=== PATIENT | female | born 1970 | race Caucasian/White ===

== ENCOUNTER 2017-04-29 07:19 | Emergency (ER) | payer OTHER ==
[2017-04-29 07:32] VITALS: BP 145/90
[2017-04-29] MEDS ORDERED: Clindamycin CAP* 150 MG PO ONE (07:43)
--- NOTE | 2017-04-29 07:51 | UC ---
UC Dental HPI - HPI Summary HPI Summary: 46 YO FEMALE WITH DM PRESENTS WITH 1 DAY HX OF DENTAL PAIN AND JAW SWELLING NO F/C NO N/V HAS NO DENTIST - History of Current Complaint Chief Complaint: UCDentalProblem Stated Complaint: SWOLLEN JAW Time Seen by Provider: 04/29/17 07:37 Hx Obtained From: Patient Hx Last Menstrual Period: 03/20/17 Onset/Duration: Gradual Onset, Lasting Hours Severity: Severe Pain Intensity: 9 Pain Scale Used: 0-10 Numeric Aggravating: Heat, Cold, Chewing Alleviating: OTC Meds Related History: Previous Dental Care on Same Tooth, Swelling - Allergies/Home Medications Allergies/Adverse Reactions: Allergies Allergy/AdvReac Type Severity Reaction Status Date / Time Amoxicillin Allergy Severe Hives Verified 04/29/17 07:24 Levofloxacin [From Levaquin] Allergy Severe Rash Verified 04/29/17 07:24 Sulfa Drugs Allergy Severe Hives Verified 04/29/17 07:24 Doxycycline Allergy Hives Verified 04/29/17 07:24 PMH/Surg Hx/FS Hx/Imm Hx Endocrine History Of: Reports: Diabetes, Thyroid Disease Cardiovascular History Of: Reports: Hypertension Respiratory History Of: Reports: Asthma - Surgical History Surgical History: Yes Surgery Procedure, Year, and Place: Left wrist surgery,Right elbow surgery, 2 Thyroidectomies, B/L carpal tunnel surgery,L knee ligament repair 1988. - Family History Known Family History: Positive: Cardiac Disease, Hypertension, Diabetes - Social History Alcohol Use: Rare Alcohol Amount: 1 Substance Use Type: None Smoking Status (MU): Heavy Every Day Tobacco Smoker Type: Cigarettes Amount Used/How Often: 1 PPD Length of Time of Smoking/Using Tobacco: 17 YRS Have You Smoked in the Last Year: Yes Household Exposure Type: Cigarettes - Immunization History Most Recent Influenza Vaccination: infrequently gets flu shot Most Recent Tetanus Shot: unk Most Recent Pneumonia Vaccination: within last 10 years Hx Tetanus, Diphtheria Vaccination: Yes Vaccination Up to Date: Yes Review of Systems Constitutional: Negative Skin: Negative Eyes: Negative ENT: Dental Pain Respiratory: Negative Cardiovascular: Negative Gastrointestinal: Negative Genitourinary: Negative Motor: Negative Neurovascular: Negative Musculoskeletal: Negative Neurological: Negative Psychological: Negative All Other Systems Reviewed And Are Negative: Yes Physical Exam Triage Information Reviewed: Yes Appearance: Well-Appearing, No Pain Distress, Well-Nourished Vital Signs: Initial Vital Signs Temp 97.9 F 04/29/17 07:28 Pulse 67 04/29/17 07:28 Resp 14 04/29/17 07:28 BP 145/90 04/29/17 07:28 Pulse Ox 99 04/29/17 07:28 Eyes: Positive: Conjunctiva Clear ENT: Positive: Hearing grossly normal. Negative: Nasal congestion, Nasal drainage, Tonsillar exudate, Trismus, Muffled/hoarse voice Dental: Positive: Gross Decay/Caries @, Abscess @, Other: - SEE IMAGE Neck: Positive: Supple, Nontender Respiratory: Positive: Lungs clear, Normal breath sounds, No respiratory distress, No accessory muscle use Cardiovascular: Positive: RRR, No Murmur Musculoskeletal: Positive: Strength Intact, ROM Intact, No Edema Neurological: Positive: Alert, Muscle Tone Normal Psychological Exam: Normal Skin Exam: Normal Dental Complaint Course/Dx - Differential Dx/Diagnosis Provider Diagnoses: DENTAL ABSCESS Discharge - Discharge Plan Condition: Stable Disposition: HOME Prescriptions: Clindamycin Cap(NF) [Cleocin 300 mg Cap(NF)] 300 mg PO QID #28 cap Patient Education Materials: Dental Abscess (ED) Referrals: Mino Lyon MD [Primary Care Provider] - Additional Instructions: TO ER FOR NEW OR WORSENING SYMPTOMS OR IF NOT NOTING ANY IMPROVEMENT IN 24 HOURS YOU NEED TO FIND A DENTIST ADDIS Images Head: 1 - SWOLLEN/TENDER Dental: 1 - ABSCESS/ABYSMAL DENTITION WITH MANY CARIOUS TEETH ROTTED TO GUM LINE
== END 2017-04-29 07:59 | disposition home or self-care (01) ==
LOC: UCCORT 07:19
DX: K04.7 Periapical abscess without sinus (principal); K02.9 Dental caries, unspecified; E11.9 Type 2 diabetes mellitus without complications; Z72.0 Tobacco use
CPT/HCPCS: 99212; A9270-GY; G0463

== ENCOUNTER 2017-06-20 10:13 | Emergency (ER) | payer OTHER ==
[2017-06-20 10:32] VITALS: BP 124/71
--- NOTE | 2017-06-20 11:09 | RAD ---
INDICATION: Atraumatic left thumb pain COMPARISON: None TECHNIQUE: AP, lateral, and oblique views were obtained. FINDINGS: There are no acute bony findings. There is minor osteoarthritic changes.. IMPRESSION: MINOR ARTHRITIC CHANGES.
--- NOTE | 2017-06-20 11:25 | UC ---
Hand/Wrist HPI - HPI Summary HPI Summary: LEFT THUMB INJURY DOG RAN INTO LEFT THUMB SEVERAL DAYS AGO, SINCE THAT TIME HAS HAD PAIN WITH MOVEMENT OF LEFT THUMB. NO HX OF GOUT. NO WARMTH. NO BRUISING OR REDNESS. - History Of Current Complaint Chief Complaint: UCUpperExtremity Stated Complaint: LEFT THUMB COMPLAINT Time Seen by Provider: 06/20/17 10:17 Hx Obtained From: Patient Hx Last Menstrual Period: 05/20/17 Onset/Duration: Sudden Onset, Lasting Days, Still Present Severity Initially: Moderate Severity Currently: Moderate Character Of Pain: Dull, Aching, Throbbing Aggravating Factor(s): Movement, Flexion, Extension Associated Signs And Symptoms: Negative: Swelling, Redness, Bruising, Fever, Weakness, Numbness/Tingling - Allergies/Home Medications Allergies/Adverse Reactions: Allergies Allergy/AdvReac Type Severity Reaction Status Date / Time Amoxicillin Allergy Severe Hives Verified 06/20/17 10:20 Levofloxacin [From Levaquin] Allergy Severe Rash Verified 06/20/17 10:20 Sulfa Drugs Allergy Severe Hives Verified 06/20/17 10:20 Doxycycline Allergy Hives Verified 06/20/17 10:20 Home Medications: Home Medications Levothyroxine TAB* [Synthroid TAB*] 125 mcg PO DAILY 06/20/17 [History Confirmed 06/20/17] Naproxen Sodium [Naproxen Sodium 220 mg cap] 220 mg PO Q8H PRN 06/20/17 [ History Confirmed 06/20/17] PMH/Surg Hx/FS Hx/Imm Hx Previously Healthy: Yes - Surgical History Surgical History: Yes Surgery Procedure, Year, and Place: Left wrist surgery,Right elbow surgery, 2 Thyroidectomies, B/L carpal tunnel surgery,L knee ligament repair 1988. - Family History Known Family History: Positive: Cardiac Disease, Hypertension, Diabetes - Social History Occupation: Employed Full-time Lives: With Family Alcohol Use: Rare Alcohol Amount: 1 Substance Use Type: None Smoking Status (MU): Heavy Every Day Tobacco Smoker Type: Cigarettes Amount Used/How Often: 1 PPD Length of Time of Smoking/Using Tobacco: 17 YRS Have You Smoked in the Last Year: Yes Household Exposure Type: Cigarettes - Immunization History Most Recent Influenza Vaccination: infrequently gets flu shot Most Recent Tetanus Shot: unk Most Recent Pneumonia Vaccination: within last 10 years Hx Tetanus, Diphtheria Vaccination: Yes Vaccination Up to Date: Yes Review of Systems Constitutional: Negative Skin: Negative Eyes: Negative ENT: Negative Respiratory: Negative Cardiovascular: Negative Gastrointestinal: Negative Genitourinary: Negative Motor: Negative Neurovascular: Negative Musculoskeletal: Arthralgia, Myalgia Neurological: Negative Psychological: Negative All Other Systems Reviewed And Are Negative: Yes Physical Exam Triage Information Reviewed: Yes Appearance: Well-Appearing, No Pain Distress, Well-Nourished Vital Signs: Initial Vital Signs Temp 98.7 F 06/20/17 10:25 Pulse 79 06/20/17 10:25 Resp 18 06/20/17 10:25 BP 124/71 06/20/17 10:25 Pulse Ox 97 06/20/17 10:25 Vital Signs Reviewed: Yes Eye Exam: Normal ENT Exam: Normal Dental Exam: Normal Neck exam: Normal Respiratory Exam: Normal Respiratory: Positive: Chest non-tender, Lungs clear Cardiovascular Exam: Normal Cardiovascular: Positive: RRR, No Murmur Abdominal Exam: Normal Musculoskeletal: Positive: No Edema, Strength Limited @ - LEFT THUMB, ROM Limited @ - LEFT THUMB Neurological Exam: Normal Psychological Exam: Normal Skin Exam: Normal Hand/Wrist Course/Dx - Differential Dx/Diagnosis Differential Diagnosis/HQI/PQRI: Cellulitis, Fracture, Gout, Sprain, Strain Provider Diagnoses: LEFT THUMB SPRAIN, OSTEOARTHRITIS Discharge - Discharge Plan Condition: Stable Disposition: HOME Patient Education Materials: Osteoarthritis (ED), Finger Sprain (ED) Referrals: Danish Cantu MD [Medical Doctor] - Mino Lyon MD [Primary Care Provider] - Additional Instructions: PHYSICAL THERAPY REFERRAL: You have been prescribed physical therapy. Treatments may include stretching, exercise, application of heat or cold, and other modalities. After an injury, PT can reduce swelling and pain. In recovery, PT is used to restore mobility and strength. Your specific treatment goals are: ____x_ Reduction of Swelling (EGS, US, ice as needed) ____x_ Pain Reduction (EGS, US, ice as needed) TENS Pack Fitting and Instruction Wound Hydrotherapy __x___ Preservation of Mobility ___x__ Tenriism of Mobility ___x__ Strength Tenriism ___x__ Work or Sports Hardening This instruction sheet also serves as your PHYSICAL THERAPY REFERRAL! Please take it with you to the therapist, so he/she will be aware of your diagnosis and treatment plan. You may see the physical therapist of your choice for these treatments, but may wish to check with your insurance to be sure the provider you select is covered. It's important to see the doctor to whom you have been referred for follow up.
== END 2017-06-20 11:40 | disposition home or self-care (01) ==
LOC: UCCORT 10:13
DX: S63.602A Unspecified sprain of left thumb, initial encounter (principal); W54.1XXA Struck by dog, initial encounter; Y93.9 Activity, unspecified; Y92.9 Unspecified place or not applicable; M19.042 Primary osteoarthritis, left hand; Z32.02 Encounter for pregnancy test, result negative; Z88.1 Allergy status to other antibiotic agents; Z88.2 Allergy status to sulfonamides; F17.210 Nicotine dependence, cigarettes, uncomplicated
CPT/HCPCS: 84702; 99212; G0463

== ENCOUNTER 2017-08-28 17:06 | Emergency (ER) | payer OTHER ==
[2017-08-28 17:22] VITALS: BP 153/83
--- NOTE | 2017-08-28 18:13 | UC ---
Epistaxis Nasal HPI - HPI Summary HPI Summary: Patient presents with sinus pressure, sinus discomfort and right sided maxillary pain worse on palpation with swelling. Denies fevers, sweats or chills. Patient is a diabetic and a smoker. She states she gets multiple sinus and bronchitis infections yearly and is allergic to several abx. She denies N/V/C/D. Denies back pain. Endorses sinus MAGALLANES. - History of Current Complaint Hx Obtained From: Patient Hx Last Menstrual Period: 07/27/17 ?: No Onset/Duration: Sudden Onset Timing: Constant Severity Initially: Moderate Severity Currently: Moderate Pain Intensity: 5 Pain Scale Used: 0-10 Numeric Aggravating Factor(s): URI Alleviating Factor(s): Pressure Associated Signs And Symptoms: Positive: Nasal Discharge <Francia Bunn - Last Filed: 08/28/17 18:08> <Vanita Garg - Last Filed: 08/29/17 20:14> - History of Current Complaint Chief Complaint: UCRespiratory Stated Complaint: SINUS PRESSURE Time Seen by Provider: 08/28/17 17:57 - Allergies/Home Medications Allergies/Adverse Reactions: Allergies Allergy/AdvReac Type Severity Reaction Status Date / Time Amoxicillin Allergy Severe Hives Verified 08/28/17 17:22 Levofloxacin [From Levaquin] Allergy Severe Rash Verified 08/28/17 17:22 Sulfa Drugs Allergy Severe Hives Verified 08/28/17 17:22 Doxycycline Allergy Hives Verified 08/28/17 17:22 PMH/Surg Hx/FS Hx/Imm Hx Previously Healthy: Yes - Surgical History Surgical History: Yes Surgery Procedure, Year, and Place: Left wrist surgery,Right elbow surgery, 2 Thyroidectomies, B/L carpal tunnel surgery,L knee ligament repair 1988. - Family History Known Family History: Positive: Cardiac Disease, Hypertension, Diabetes - Social History Occupation: Employed Full-time Lives: With Family Alcohol Use: Rare Alcohol Amount: 1 Substance Use Type: None Smoking Status (MU): Heavy Every Day Tobacco Smoker Type: Cigarettes Amount Used/How Often: 1 PPD Length of Time of Smoking/Using Tobacco: 17 YRS Have You Smoked in the Last Year: Yes Household Exposure Type: Cigarettes - Immunization History Most Recent Influenza Vaccination: no Most Recent Tetanus Shot: unk Most Recent Pneumonia Vaccination: within last 10 years Hx Tetanus, Diphtheria Vaccination: Yes Vaccination Up to Date: Yes <Francia Bunn - Last Filed: 08/28/17 18:08> Review of Systems Constitutional: Negative Skin: Negative ENT: Nasal Discharge, Sinus Congestion, Sinus Pain/Tenderness Respiratory: Cough, Other Motor: Negative Neurovascular: Negative Musculoskeletal: Negative Neurological: Negative Is Patient Immunocompromised?: No All Other Systems Reviewed And Are Negative: Yes <Francia Bunn - Last Filed: 08/28/17 18:08> Physical Exam Triage Information Reviewed: Yes Appearance: Well-Appearing, Well-Nourished Vital Signs: Initial Vital Signs Temp 98.4 F 08/28/17 17:17 Pulse 70 08/28/17 17:17 Resp 15 08/28/17 17:17 BP 153/83 08/28/17 17:17 Pulse Ox 99 08/28/17 17:17 Vital Signs Reviewed: Yes Eye Exam: Normal ENT: Positive: Nasal congestion, Nasal drainage Neck exam: Normal Neck: Positive: No Lymphadenopathy Respiratory Exam: Normal Respiratory: Positive: Chest non-tender, Lungs clear Cardiovascular Exam: Normal Cardiovascular: Positive: RRR Musculoskeletal Exam: Normal Musculoskeletal: Positive: Strength Intact Neurological Exam: Normal Neurological: Positive: Alert Psychological: Positive: Normal Response To Family Skin Exam: Normal <Francia Bunn - Last Filed: 08/28/17 18:08> Vital Signs: Initial Vital Signs Temp 98.4 F 08/28/17 17:17 Pulse 70 08/28/17 17:17 Resp 15 08/28/17 17:17 BP 153/83 08/28/17 17:17 Pulse Ox 99 08/28/17 17:17 <Vanita Garg - Last Filed: 08/29/17 20:14> Epistaxis Nasal Course/Dx - Course Course Of Treatment: Patient presents for evaluation of sinus pressure. She is allergic to multiple abx. She is given clindamycin for dental infection and sinusitis. Denies other symptoms. - Differential Dx/Diagnosis Differential Diagnosis/HQI/PQRI: Sinusitis Provider Diagnoses: Sinusitis/Dental Infection <Francia Bunn - Last Filed: 08/28/17 18:08> Discharge <Francia Bunn - Last Filed: 08/28/17 18:08> <Vanita Garg - Last Filed: 08/29/17 20:14> - Discharge Plan Condition: Stable Disposition: HOME Prescriptions: Clindamycin Cap(NF) [Clindamycin Cap 300 mg Cap(NF)] 300 mg PO Q6H #28 cap Patient Education Materials: Dental Abscess (ED), Sinusitis (ED) Referrals: Mino Lyon MD [Primary Care Provider] - Additional Instructions: Warm compresses to the area will help Clindamycin 300mg four times daily Ibuprofen 600mg three times daily If any symptoms become worse, return to the UC immediately Attestation Statement User Type: Provider - I was available for consult. This patient was seen by the [facility]. The patient was not presented to, seen by, or examined by me. -Hammad <Vanita Garg - Last Filed: 08/29/17 20:14>
== END 2017-08-28 18:12 | disposition home or self-care (01) ==
LOC: UCCORT 17:06
DX: J32.9 Chronic sinusitis, unspecified (principal); F17.210 Nicotine dependence, cigarettes, uncomplicated; Z88.1 Allergy status to other antibiotic agents
CPT/HCPCS: 99212; G0463

== ENCOUNTER 2017-08-30 04:28 | Emergency (ER) | payer OTHER ==
[2017-08-30] MEDS ORDERED: NS 0.9% 1000 ML* 1,000 ML IV ONE (05:06)
[2017-08-30] MEDS ORDERED: Clindamycin 600 MG IVPREMIX(* 600 MG in PREMIX* 0 ML IV ONE (05:06)
[2017-08-30] MEDS ORDERED: Ondansetron INJ* 2 MG/ML VIAL IV ONE (05:07)
[2017-08-30] MEDS ORDERED: HYDROmorphone INJ* 1 MG/ML CARPUJECT SYRINGE IV ONE (05:07)
[2017-08-30] MEDS ORDERED: Clindamycin 600 MG IVPREMIX(* 600 MG/50 ML SDV ONE (06:09)
[2017-08-30 06:31] LABS: Hematocrit 37 % (35-47); Hemoglobin 11.9 g/dl (12.0-16.0); Mean Corpuscular HGB Conc 32 g/dl (31-36); Mean Corpuscular Hemoglobin 25 pg (27-31); Mean Corpuscular Volume 77 fL (80-97); Mean Platelet Volume 9 um3 (7.4-10.4); Red Blood Count 4.73 10^6/ul (4.0-5.4); Red Cell Distribution Width 16 % (10.5-15); White Blood Count 13.7 10^3/ul (3.5-10.8)
[2017-08-30 06:42] LABS: Albumin 3.6 g/dL (3.2-5.2); BUN/Creatinine Ratio 14.3 (8-20); C Reactive Protein 40.35 mg/L (< 5.00); Calcium 8.5 mg/dL (8.6-10.3); EGFR African American 129.7 (>60); EGFR Non-African American 100.9 (>60); Globulin 2.7 g/dL (2-4); Potassium 3.9 mmol/L (3.5-5.0); Total Bilirubin 0.4 mg/dL (0.2-1.0); Total Protein 6.3 g/dL (6.4-8.9)
--- NOTE | 2017-08-30 07:01 | ED ---
Linda Andrews Rebecca, scribed for Janett Wesley MD on 08/30/17 at 0459 . Complex/Multi-Sys Presentation - HPI Summary HPI Summary: Pt is a 46 y/o F who presents to ED c/o worsening facial swelling. Pt reports that approximately 3 days ago she began experiencing R-sided facial swelling on the cheek and above the lip. Starting this morning, it spread to the L cheek and above the lip. She additionally c/o nasal congestion for about 1 week. Denies fever. She was evaluated by [facility] 2 days ago and was D/C to home with Dx of sinusitis and facial abscess with Rx for Clindamycin. - History Of Current Complaint Chief Complaint: EDGeneral Time Seen by Provider: 08/30/17 04:34 Hx Obtained From: Patient Onset/Duration: Lasting Days - 3 days, Still Present, Worse Since - This morning Severity Currently: Severe - 09/10 Location: Pain At: - Facial Aggravating Factor(s): Nothing Alleviating Factor(s): Nothing Associated Signs And Symptoms: Positive: Other - Nasal congestion. Negative: Fever - Allergies/Home Medications Allergies/Adverse Reactions: Allergies Allergy/AdvReac Type Severity Reaction Status Date / Time Amoxicillin Allergy Severe Hives Verified 08/30/17 04:47 Levofloxacin [From Levaquin] Allergy Severe Rash Verified 08/30/17 04:47 Sulfa Drugs Allergy Severe Hives Verified 08/30/17 04:47 Doxycycline Allergy Hives Verified 08/30/17 04:47 PMH/Surg Hx/FS Hx/Imm Hx Endocrine/Hematology History: Reports: Hx Diabetes, Hx Thyroid Disease Cardiovascular History: Reports: Hx Hypertension, Other Cardiovascular Problems/ Disorders - IDDM/ DKA Respiratory History: Reports: Hx Asthma - Surgical History Surgery Procedure, Year, and Place: Left wrist surgery,Right elbow surgery, 2 Thyroidectomies, B/L carpal tunnel surgery,L knee ligament repair 1988. Infectious Disease History: No Infectious Disease History: Denies: Traveled Outside the [place] in Last 30 Days - Family History Known Family History: Positive: Cardiac Disease, Hypertension, Diabetes - Social History Alcohol Use: Rare Alcohol Amount: 1 Substance Use Type: Reports: None Hx Tobacco Use: Yes Smoking Status (MU): Heavy Every Day Tobacco Smoker Type: Cigarettes Amount Used/How Often: 1 PPD Length of Time of Smoking/Using Tobacco: 17 YRS Have You Smoked in the Last Year: Yes Review of Systems Negative: Fever Positive: Other - Nasal congestion Positive: Other - Facial swelling of the cheeks and above the upper lip with associated pain All Other Systems Reviewed And Are Negative: Yes Physical Exam - Summary Physical Exam Summary: General: Well appearing, in moderate distress Skin: Warm, Skin Color Reflects Adequate Perfusion, Dry, Increase in facial swelling with fluctuance over the cheek bone n the right-hand side Eyes: EOMI, SHAYLA ENT: Pharynx normal, TMs normal, Tooth number 7 is decayed and painful Neck: Supple, nontender Respiratory: CTA, breath sounds present, no rhonchi, no wheezes, no rales Cardiovascular: RRR, no murmur, no rub, no gallop Abdomen: Soft, nontender, Non-distended, no guarding, no rebound Bowel: Present Musculoskeletal: CASEY, No edema Neuro: Sensory/motor intact, A&Ox3, CN intact 2-12 Psych: Affect/mood appropriate Triage Information Reviewed: Yes Vital Signs On Initial Exam: Initial Vitals Temp Pulse Resp BP Pulse Ox 99.5 F 78 16 172/90 96 08/30/17 04:42 08/30/17 04:42 08/30/17 04:42 08/30/17 04:42 08/30/17 04:42 Vital Signs Reviewed: Yes Diagnostics - Vital Signs Vital Signs Temp Pulse Resp BP Pulse Ox 08/30/17 04:42 99.5 F 78 16 172/90 96 - Laboratory Lab Results: Lab Results 08/30/17 08/30/17 08/30/17 Range/Units 06:00 06:00 06:00 WBC 13.7 H (3.5-10.8) 10^3/ul RBC 4.73 (4.0-5.4) 10^6/ul Hgb 11.9 L (12.0-16.0) g/dl Hct 37 (35-47) % MCV 77 L (80-97) fL MCH 25 L (27-31) pg MCHC 32 (31-36) g/dl RDW 16 H (10.5-15) % Plt Count 281 (150-450) 10^3/ul MPV 9 (7.4-10.4) um3 Neut % (Auto) 80.3 (38-83) % Lymph % (Auto) 10.9 L (25-47) % [place] % (Auto) 7.5 (1-9) % Eos % (Auto) 0.3 (0-6) % Baso % (Auto) 1.0 (0-2) % Absolute Neuts (auto) 11.0 H (1.5-7.7) 10^3/ul Absolute Lymphs (auto) 1.5 (1.0-4.8) 10^3/ul Absolute Monos (auto) 1.0 H (0-0.8) 10^3/ul Absolute Eos (auto) 0 (0-0.6) 10^3/ul Absolute Basos (auto) 0.1 (0-0.2) 10^3/ul Absolute Nucleated RBC 0 10^3/ul Nucleated RBC % 0 Sodium 136 (133-145) mmol/L Potassium 3.9 (3.5-5.0) mmol/L Chloride 103 (101-111) mmol/L Carbon Dioxide 27 (22-32) mmol/L Anion Gap 6 (2-11) mmol/L BUN 9 (6-24) mg/dL Creatinine 0.63 (0.51-0.95) mg/dL Est GFR ( Amer) 129.7 (>60) Est GFR (Non-Af Amer) 100.9 (>60) BUN/Creatinine Ratio 14.3 (8-20) Glucose 161 H (70-100) mg/dL Lactic Acid 1.1 (0.5-2.0) mmol/L Calcium 8.5 L (8.6-10.3) mg/dL Total Bilirubin 0.40 (0.2-1.0) mg/dL AST 9 L (13-39) U/L ALT 9 (7-52) U/L Alkaline Phosphatase 75 (34-104) U/L C-Reactive Protein 40.35 H (< 5.00) mg/L Total Protein 6.3 L (6.4-8.9) g/dL Albumin 3.6 (3.2-5.2) g/dL Globulin 2.7 (2-4) g/dL Albumin/Globulin Ratio 1.3 (1-3) Result Diagrams: 08/30/17 06:00 08/30/17 06:00 Lab Statement: Any lab studies that have been ordered have been reviewed, and results considered in the medical decision making process. - CT CT Maxillofacial CT Interpretation Completed By: Radiologist - Pending radiologist interpretation. See [employer] for results. Re-Evaluation - Re-Evaluation First Eval Re-Evaluation Time: 06:16 Comment: Receiving pain medication. Complex Multi-Symp Course/Dx Course Of Treatment: 46 yo female with facial swelling initially on right side of face likely secondary to tooth #6 now with increased facial swelling on the left. pt is awaiting ct of face but has already received iv clinda and will be signed out to am attending - Diagnoses Provider Diagnoses: Facial swelling Discharge - Discharge Plan Condition: Stable Disposition: OTHER Discharge Disposition Comment: Pt will be signed out, pending dispo, awaiting CT Maxillofacial. Referrals: Mino Lyon MD [Primary Care Provider] - The documentation as recorded by the Linda reynoso Rebecca accurately reflects the service I personally performed and the decisions made by me, Janett Wesley MD.
--- NOTE | 2017-08-30 09:41 | RAD ---
HISTORY: Right facial swelling, right tooth pain, fluctuance COMPARISONS: None TECHNIQUE: Multiple contiguous axial CT scans were obtained of the face without intravenous contrast, with coronal and sagittal multiplanar reformations. FINDINGS: The study is limited by the lack of intravenous contrast. This limits evaluation of the soft tissues. BONES: There is extensive carious disease, with periapical lucency along multiple teeth. There is cortical disruption along the anterior maxilla along the right second incisor. ORBITS: The globes are round. The optic nerves are symmetric. The extraocular musculature is normal. There is no post septal or intraconal inflammatory change. There is no retrobulbar hematoma. PARANASAL SINUSES: The paranasal sinuses are clear. BRAIN AND SOFT TISSUE: There is soft tissue swelling with findings suggestive of a loculated fluid collection along the right anterior maxilla measuring 1.4 x 1.8 x 1.7 cm in size. OTHER: None. IMPRESSION: EXTENSIVE CARIOUS DISEASE WITH MULTIPLE PERIAPICAL ABSCESSES. THERE IS CORTICAL DISRUPTION ALONG THE RIGHT SECOND INCISOR OF THE MAXILLA WITH ASSOCIATED LOCULATED FLUID COLLECTION SUGGESTIVE OF AN ABSCESS OF THE PREMAXILLARY SOFT TISSUE MEASURING UP TO 1.8 CM IN SIZE.
[2017-08-30 09:49] VITALS: BP 138/87
[2017-08-30] MEDS ORDERED: metroNIDAZOLE TAB* 250 MG PO ONE (10:10)
--- NOTE | 2017-08-30 18:26 | ED ---
Khai Andrews Angela, scribed for Jaret Chaney MD on 08/30/17 at 0715 . Progress - Progress Note Progress Note: Pt is a 46 y/o female who presents to the ED c/o worsening facial swelling x3 days. 3 days ago swelling began on the right side of her face and this morning it has spread to her left cheek. Pt states she does not have a dentist. This pt was signed out from Dr. Wesley, pending disposition, awaiting maxillofacial CT. Pt will be discharged to home in stable condition with a diagnoses of extensive carious disease and dental abscesses. - Results/Orders Results/Orders: Maxillofacial CT IMPRESSION: EXTENSIVE CARIOUS DISEASE WITH MULTIPLE PERIAPICAL ABSCESSES. THERE IS CORTICAL DISRUPTION ALONG THE RIGHT SECOND INCISOR OF THE MAXILLA WITH ASSOCIATED LOCULATED FLUID COLLECTION SUGGESTIVE OF AN ABSCESS OF THE PREMAXILLARY SOFT TISSUE MEASURING UP TO 1.8 CM IN SIZE. ED physician has reviewed this radiology report and agrees. Re-Evaluation - Re-Evaluation First Eval Re-Evaluation Time: 07:55 Comment: On examination, there is diffuse dental decay with multiple missing teeth. There is swelling of the left side of the face and slightly on the right side. Course/Dx - Course Course Of Treatment: Pt is a 46 y/o female who presents to the ED c/o worsening facial swelling x3 days. 3 days ago swelling began on the right side of her face and this morning it has spread to her left cheek. Pt states she does not have a dentist. This pt was signed out from Dr. Wesley, pending disposition, awaiting maxillofacial CT. CT reveals extensive carious disease with multiple periarpical abscesses. There is cortical disruption along the right second incisor of the maxilla with associated loculated fluid collection suggestive of an abscess of the premaxillary soft tisssue measuring up to 1.8 cm in size. I discussed the case with Dr. Thomas who recommends I discharge the pt home with prescriptions for clindamycin and flagyl. Dr. Thomas will follow up with the pt on Saturday in his office. I discussed the plan with the pt and she understands and agrees. Before discharge, pt does not have trismus, swelling of face or tongue, and the airway is intact. Pt is hemodynamically stable, alert and oriented x3. - Diagnoses Provider Diagnoses: Extensive carious disease, Dental abscesses - Provider Notifications Discussed Care Of Patient With: Favian Thomas Time Discussed With Above Provider: 10:05 Instructed by Provider To: Other - I discussed the case with Dr. Thomas, who recommends Clindamycin and Flagyl. He also recommends the pt to call his office and follow up with him. The documentation as recorded by the Khai reynoso Angela accurately reflects the service I personally performed and the decisions made by me, Jaret Chaney MD.
== END 2017-08-30 10:27 ==
LOC: ED 04:28
DX: K02.9 Dental caries, unspecified (principal); K04.7 Periapical abscess without sinus; R09.81 Nasal congestion; R22.0 Localized swelling, mass and lump, head
CPT/HCPCS: 36415; 70486; 80053; 83605; 85025; 86140; 87040; 99283; A9270-GY; J1170; J2405

== ENCOUNTER 2017-10-21 16:40 | Emergency (ER) | payer OTHER ==
--- NOTE | 2017-10-21 16:45 | UC ---
Throat Pain/Nasal Richy HPI - HPI Summary HPI Summary: 46 year old female presents with complains of left sided sinus infection and severe swelling. - History of Current Complaint Stated Complaint: CHEST RICHY,SINUSES,FACE Time Seen by Provider: 10/21/17 16:44 Hx Last Menstrual Period: 07/27/17 Onset/Duration: Sudden Onset Severity: Moderate - Allergies/Home Medications Allergies/Adverse Reactions: Allergies Allergy/AdvReac Type Severity Reaction Status Date / Time Amoxicillin Allergy Severe Hives Verified 10/21/17 17:39 Levofloxacin [From Levaquin] Allergy Severe Rash Verified 10/21/17 17:39 Sulfa Drugs Allergy Severe Hives Verified 10/21/17 17:39 Doxycycline Allergy Hives Verified 10/21/17 17:39 Home Medications: Home Medications Levothyroxine TAB* [Synthroid TAB*] 200 mcg PO DAILY 10/21/17 [History Confirmed 10/21/17] PMH/Surg Hx/FS Hx/Imm Hx Previously Healthy: Yes - Surgical History Surgical History: Yes Surgery Procedure, Year, and Place: Left wrist surgery,Right elbow surgery, 2 Thyroidectomies, B/L carpal tunnel surgery,L knee ligament repair 1988. - Family History Known Family History: Positive: Cardiac Disease, Hypertension, Diabetes - Social History Alcohol Use: Rare Alcohol Amount: 1 Substance Use Type: None Smoking Status (MU): Heavy Every Day Tobacco Smoker Type: Cigarettes Amount Used/How Often: 1 PPD Length of Time of Smoking/Using Tobacco: 17 YRS Have You Smoked in the Last Year: Yes Household Exposure Type: Cigarettes - Immunization History Most Recent Influenza Vaccination: no Most Recent Tetanus Shot: unk Most Recent Pneumonia Vaccination: within last 10 years Hx Tetanus, Diphtheria Vaccination: Yes Vaccination Up to Date: Yes Review of Systems Constitutional: Negative Skin: Other - left sinus pressure/swelling Eyes: Negative ENT: Negative Respiratory: Negative Cardiovascular: Negative Gastrointestinal: Negative Genitourinary: Negative Motor: Negative Neurovascular: Negative Musculoskeletal: Negative Neurological: Negative Psychological: Negative All Other Systems Reviewed And Are Negative: Yes Physical Exam Triage Information Reviewed: Yes Vital Signs Reviewed: Yes Eye Exam: Normal ENT: Positive: Nasal congestion, Nasal drainage, Sinus tenderness Dental Exam: Normal Neck exam: Normal Neck: Positive: 1 Respiratory Exam: Normal Cardiovascular Exam: Normal Abdominal Exam: Normal Musculoskeletal Exam: Normal Neurological Exam: Normal Psychological Exam: Normal Skin Exam: Normal Throat Pain/Nasal Course/Dx - Differential Dx/Diagnosis Provider Diagnoses: sinus congestion. left facial cellulitis Discharge - Discharge Plan Condition: Stable Disposition: HOME Prescriptions: Clindamycin Cap(NF) [Clindamycin Cap 300 mg Cap(NF)] 300 mg PO TID #30 cap Metronidazole [Flagyl 500 MG TAB] 500 mg PO BID 20 Days #1 tab Patient Education Materials: Dental Abscess (ED), Sinusitis (ED) Referrals: Mino Lyon MD [Primary Care Provider] -
[2017-10-21 17:39] VITALS: BP 178/90
== END 2017-10-21 17:51 | disposition home or self-care (01) ==
LOC: UCCORT 16:40
DX: R09.81 Nasal congestion (principal); L03.211 Cellulitis of face; Z88.1 Allergy status to other antibiotic agents; Z88.2 Allergy status to sulfonamides; F17.210 Nicotine dependence, cigarettes, uncomplicated
CPT/HCPCS: 99212; G0463

== ENCOUNTER 2017-12-25 17:23 | Emergency (ER) | payer OTHER ==
[2017-12-25 18:38] VITALS: BP 154/88
--- NOTE | 2017-12-25 20:04 | UC ---
Respiratory Complaint HPI - HPI Summary HPI Summary: Pt presents with c/o cough, wheezing, chills and generalized malaise X 3 days. - History of Current Complaint Chief Complaint: UCGeneralIllness Stated Complaint: UPPER RESPIRATORY Time Seen by Provider: 12/25/17 19:55 Hx Obtained From: Patient Hx Last Menstrual Period: 12/11/17 ?: No Onset/Duration: Gradual Onset, Lasting Days, Still Present Timing: Constant Severity Initially: Mild Severity Currently: Mild Pain Intensity: 8 Character: Cough: Nonproductive Aggravating Factors: Deep Breaths, Recumbent Position Alleviating Factors: Nothing Associated Signs And Symptoms: Positive: Wheezing - Risk Factors Pulmonary Embolism Risk Factors: Smoking Cardiac Risk Factors: Smoking Tuberculosis Risk Factors: Diabetes - Allergies/Home Medications Allergies/Adverse Reactions: Allergies Allergy/AdvReac Type Severity Reaction Status Date / Time Amoxicillin Allergy Severe Hives Verified 12/25/17 18:27 Levofloxacin [From Levaquin] Allergy Severe Rash Verified 12/25/17 18:27 Sulfa Drugs Allergy Severe Hives Verified 12/25/17 18:27 Doxycycline Allergy Hives Verified 12/25/17 18:27 PMH/Surg Hx/FS Hx/Imm Hx Previously Healthy: No Endocrine History: Diabetes, Thyroid Disease - Surgical History Surgical History: Yes Surgery Procedure, Year, and Place: Left wrist surgery,Right elbow surgery, 2 Thyroidectomies, B/L carpal tunnel surgery,L knee ligament repair 1988. - Family History Known Family History: Positive: Cardiac Disease, Hypertension, Diabetes - Social History Occupation: Employed Full-time Lives: With Family Alcohol Use: Weekly Alcohol Amount: 1 Substance Use Type: None Smoking Status (MU): Heavy Every Day Tobacco Smoker Type: Cigarettes Amount Used/How Often: 1/2 PPD Length of Time of Smoking/Using Tobacco: 20 YRS Have You Smoked in the Last Year: Yes Household Exposure Type: Cigarettes - Immunization History Most Recent Influenza Vaccination: no Most Recent Tetanus Shot: unk Most Recent Pneumonia Vaccination: within last 10 years Hx Tetanus, Diphtheria Vaccination: Yes Vaccination Up to Date: Yes Review of Systems Constitutional: Chills, Fatigue Skin: Negative Eyes: Negative ENT: Negative Respiratory: Cough Cardiovascular: Negative Gastrointestinal: Negative Genitourinary: Negative Motor: Negative Neurovascular: Negative Musculoskeletal: Negative Neurological: Negative Psychological: Negative Is Patient Immunocompromised?: No All Other Systems Reviewed And Are Negative: Yes Physical Exam Triage Information Reviewed: Yes Appearance: Ill-Appearing Vital Signs: Initial Vital Signs Temp 97.3 F 12/25/17 18:32 Pulse 77 12/25/17 18:32 Resp 16 12/25/17 18:32 BP 154/88 12/25/17 18:32 Pulse Ox 97 12/25/17 18:32 Vital Signs Reviewed: Yes Eye Exam: Normal ENT Exam: Normal Dental Exam: Normal Neck exam: Normal Neck: Positive: Other: - surgical scar from thyroidectomy, well healed Respiratory Exam: Other Respiratory: Positive: Wheezing Cardiovascular Exam: Normal Musculoskeletal Exam: Normal Neurological Exam: Normal Psychological Exam: Normal Skin Exam: Normal UC Diagnostic Evaluation - Laboratory O2 Sat by Pulse Oximetry: 97 Respiratory Course/Dx - Differential Dx/Diagnosis Differential Diagnosis/HQI/PQRI: Bronchitis, Influenza Provider Diagnoses: Bronchitis Discharge - Discharge Plan Condition: Stable Disposition: HOME Prescriptions: Azithromycin TAB* [Zithromax TAB (Z-REBECCA) 250 mg #6 tabs] 2 tab PO .TODAY, THEN 1 DAILY #1 rebecca Benzonatate CAP* [Tessalon 100 MG CAP*] 100 mg PO Q8H PRN #30 cap PRN Reason: Cough predniSONE TAB* [Deltasone TAB*] 30 mg PO DAILY #9 tab Patient Education Materials: Acute Bronchitis (ED) Forms: *Work Release Referrals: Mino Lyon MD [Primary Care Provider] - If Needed
== END 2017-12-25 20:15 | disposition home or self-care (01) ==
LOC: UCCORT 17:23
DX: J40 Bronchitis, not specified as acute or chronic (principal); E11.9 Type 2 diabetes mellitus without complications; E07.9 Disorder of thyroid, unspecified; Z88.1 Allergy status to other antibiotic agents; Z88.2 Allergy status to sulfonamides; F17.210 Nicotine dependence, cigarettes, uncomplicated
CPT/HCPCS: 99212; G0463

== ENCOUNTER 2018-03-17 09:43 | Emergency (ER) | payer OTHER ==
[2018-03-17 10:22] VITALS: BP 190/93
[2018-03-17] MEDS ORDERED: Tetracaine 0.5% OPTH.SOL 4 ML* 1 DROP BTL ONE (10:24)
[2018-03-17] MEDS ORDERED: BSS OPTH.SOL* BTL ONE (10:24)
[2018-03-17] MEDS ORDERED: Fluorescein Sod TOPICAL 0.6* 0.6 MG TEST OPHTHALMIC ONE (10:24)
--- NOTE | 2018-03-17 11:03 | UC ---
Eye Complaint HPI - HPI Summary HPI Summary: Pt c/o right eye redness, feeling of FB, itchiness, and tenderness X 1 day. - History of Current Complaint Chief Complaint: UCEye Stated Complaint: EYE Time Seen by Provider: 03/17/18 10:41 Hx Obtained From: Patient Hx Last Menstrual Period: 02/12/18 ?: No Onset/Duration: Sudden Onset Timing: Constant Severity Initially: Mild Severity Currently: Mild Pain Intensity: 5 Location of Injury: Sclera Character: Foreign Body Sensation Aggravating Factor(s): Blinking Alleviating Factor(s): Nothing Associated Signs And Symptoms: Positive: Drainage (Clear) - Risk Factors Penetrating Injury Risk Factor: Negative Globe Rupture Risk Factors: Negative Acute Glaucoma Risk Factors: Negative Optic Artery Occlusion Risk Factors: Negative - Allergies/Home Medications Allergies/Adverse Reactions: Allergies Allergy/AdvReac Type Severity Reaction Status Date / Time amoxicillin Allergy Hives Verified 03/17/18 10:13 doxycycline Allergy Hives Verified 03/17/18 10:13 levofloxacin Allergy Rash Verified 03/17/18 10:13 Sulfa (Sulfonamide Allergy Hives Verified 03/17/18 10:13 Antibiotics) sulfamethoxazole Allergy Hives Verified 03/17/18 11:16 [From Bactrim] trimethoprim [From Bactrim] Allergy Hives Verified 03/17/18 11:16 PMH/Surg Hx/FS Hx/Imm Hx Previously Healthy: Yes Endocrine History: Diabetes Cardiovascular History: Cardiac Disease - Surgical History Surgical History: Yes Surgery Procedure, Year, and Place: Left wrist surgery,Right elbow surgery, 2 Thyroidectomies, B/L carpal tunnel surgery,L knee ligament repair 1988. - Family History Known Family History: Positive: Cardiac Disease, Hypertension, Diabetes - Social History Occupation: Employed Full-time Lives: With Family Alcohol Use: Weekly Alcohol Amount: 1 Substance Use Type: None Smoking Status (MU): Heavy Every Day Tobacco Smoker Type: Cigarettes Amount Used/How Often: 1/2 PPD Length of Time of Smoking/Using Tobacco: 20 YRS Have You Smoked in the Last Year: Yes Household Exposure Type: Cigarettes - Immunization History Most Recent Influenza Vaccination: no Most Recent Tetanus Shot: unk Most Recent Pneumonia Vaccination: within last 10 years Hx Tetanus, Diphtheria Vaccination: Yes Vaccination Up to Date: Yes Review of Systems Constitutional: Negative Skin: Negative Eyes: Drainage, Eye Redness ENT: Negative Respiratory: Negative Cardiovascular: Negative Gastrointestinal: Negative Genitourinary: Negative Motor: Negative Neurovascular: Negative Musculoskeletal: Negative Neurological: Negative Psychological: Negative Is Patient Immunocompromised?: No All Other Systems Reviewed And Are Negative: Yes Physical Exam Triage Information Reviewed: Yes Appearance: Well-Appearing Vital Signs: Initial Vital Signs Temp 97.5 F 03/17/18 10:17 Pulse 81 03/17/18 10:17 Resp 18 03/17/18 10:17 BP 190/93 03/17/18 10:17 Pulse Ox 97 03/17/18 10:17 Vital Signs Reviewed: Yes Eyes: Positive: Conjunctiva Inflamed, Discharge - clear, Other: - flurocein uptake at right corner of sclera. Eye Complaint Course/Dx - Course Course Of Treatment: I discussed with the pt the need to f/u with her eye care porvider as soon as possible. Pt verbalized understanding and agreed to plan of care. - Differential Dx/Diagnosis Differential Diagnosis/HQI/PQRI: Conjunctivitis, Corneal Abrasion, Foreign Body Provider Diagnoses: possible corneal abrasion. possible FB right eye Discharge - Sign-Out/Discharge Documenting (check all that apply): Discharge - Discharge Plan Condition: Stable Disposition: HOME Patient Education Materials: Corneal Abrasion (ED) Referrals: Mino Lyon MD [Primary Care Provider] - If Needed Additional Instructions: Please follow up with your PCP or return to clinic as needed. Please follow up with your eye care provider as soon as possible. Please use over the counter eye lubricating drops as needed and as directed on the packaging. - Billing Disposition and Condition Condition: STABLE Disposition: HOME
== END 2018-03-17 11:20 | disposition home or self-care (01) ==
LOC: UCCORT 09:43
DX: H57.9 Unspecified disorder of eye and adnexa (principal); F17.210 Nicotine dependence, cigarettes, uncomplicated; Z88.3 Allergy status to other anti-infective agents; Z88.2 Allergy status to sulfonamides
CPT/HCPCS: 99212; A9270-GY; G0463

== ENCOUNTER 2018-05-01 18:10 | Emergency (ER) | payer OTHER ==
[2018-05-01 18:44] VITALS: BP 160/88
--- NOTE | 2018-05-01 18:50 | UC ---
Lower Extremity/Ankle HPI - HPI Summary HPI Summary: 47 y/o female presents to the urgent care c/o left foot pain s/p twisting her foot in her back yard about 2hrs ago today. Pt felt and heard a pop. Pain is 8/ 10 w/ walking, 5/10 w/ rest associated w/ mild swelling in the dorsal mid foot. Pt hasn't take anything to alleviate symptoms. Pt denies fever, numbness or tingling sensation over the toes or foot, calf pain, SOB, chest pain, abdominal pain, N/V/D. - History of Current Complaint Chief Complaint: UCLowerExtremity Stated Complaint: RT FOOT INJURY Time Seen by Provider: 05/01/18 18:49 Hx Obtained From: Patient Hx Last Menstrual Period: 04/17/18 ?: No - Pt declines pregnacy test Onset/Duration: Gradual Onset, Lasting Hours - 2hrs Severity Initially: Moderate Severity Currently: Moderate Pain Intensity: 5 - rest Pain Scale Used: 0-10 Numeric Aggravating Factor(s): Ambulation Alleviating Factor(s): Rest, Ice Able to Bear Weight: Yes - Risk Factors Gout Risk Factors: Negative DVT Risk Factors: Negative Septic Arthritis Risk Factor: Negative - Allergies/Home Medications Allergies/Adverse Reactions: Allergies Allergy/AdvReac Type Severity Reaction Status Date / Time amoxicillin Allergy Hives Verified 05/01/18 18:46 doxycycline Allergy Hives Verified 05/01/18 18:46 levofloxacin Allergy Rash Verified 05/01/18 18:46 Sulfa (Sulfonamide Allergy Hives Verified 05/01/18 18:46 Antibiotics) sulfamethoxazole Allergy Hives Verified 05/01/18 18:46 [From Bactrim] trimethoprim [From Bactrim] Allergy Hives Verified 05/01/18 18:46 Home Medications: Home Medications Insulin GLARGINE(*) [Lantus(*)] 20 units SUBCUT BEDTIME 05/01/18 [History Confirmed 05/01/18] PMH/Surg Hx/FS Hx/Imm Hx Previously Healthy: Yes Endocrine History: Diabetes, Hypothyroidism Other Endocrine History: Osteoarthritis Other GI/ History: Constipation - Surgical History Surgical History: Yes Surgery Procedure, Year, and Place: Left wrist surgery,Right elbow surgery, 2 Thyroidectomies, B/L carpal tunnel surgery,L knee ligament repair 1988. - Family History Known Family History: Positive: Cardiac Disease, Hypertension, Diabetes - Social History Occupation: Employed Full-time Lives: With Family Alcohol Use: Weekly Alcohol Amount: 1 Substance Use Type: None Smoking Status (MU): Heavy Every Day Tobacco Smoker Type: Cigarettes Amount Used/How Often: 1/2 PPD Length of Time of Smoking/Using Tobacco: 20 YRS Have You Smoked in the Last Year: Yes Household Exposure Type: Cigarettes - Immunization History Most Recent Influenza Vaccination: no Most Recent Tetanus Shot: unk Most Recent Pneumonia Vaccination: within last 10 years Hx Tetanus, Diphtheria Vaccination: Yes Vaccination Up to Date: Yes Review of Systems Constitutional: Negative Skin: Negative Eyes: Negative ENT: Negative Respiratory: Negative Cardiovascular: Negative Gastrointestinal: Negative Genitourinary: Negative Motor: Negative Neurovascular: Negative Musculoskeletal: Decreased ROM - RT foot, Other: - RT foot pain and swelling over the mid foot s/p twisting foot Neurological: Negative, Headache Is Patient Immunocompromised?: No All Other Systems Reviewed And Are Negative: Yes Physical Exam - Summary Physical Exam Summary: Vital Signs Reviewed: Yes General : well developed, well nourished female w/o any apparent distress Eyes: Positive: Conjunctiva Clear - PERRLA, EOMI ENT: Positive: Normal ENT inspection, Hearing grossly normal, Pharynx normal, TMs normal Neck: Positive: Supple, Nontender, No Lymphadenopathy Respiratory: Positive: Chest non-tender, Lungs clear, Normal breath sounds, No respiratory distress Cardiovascular: Positive: RRR, No Murmur, Pulses Normal Abdomen Description: Positive: Nontender, No Organomegaly, Soft. Negative: CVA Tenderness (R), CVA Tenderness (L) Bowel Sounds: Positive: Present Musculoskeletal: Positive: Strength Intact, ROM Intact, No Edema, RT Foot/Toes: Pt is able to bear weight but ambulate with mild limping and help of crutches. RT foot :No surface trauma, ecchymosis, erythema, lesions, ulcers or break in skin integrity. The R foot is without obvious asymmetry or deformity when compared to the L foot. No bony step-off, No tenderness to palpation over toes, point tenderness w/ mild swelling over the dorsal side of mid foot, no Point tenderness over sole, no tenderness of hindfoot, Decrease plantar/dorsiflexion , inversion/eversion due to pain. Distal motor and neurovascular status are intact. Neurological Exam: Normal Psychological Exam: Normal Skin Exam: Normal Triage Information Reviewed: Yes Vital Signs: Initial Vital Signs Temp 98 F 05/01/18 18:35 Pulse 82 05/01/18 18:35 Resp 18 05/01/18 18:35 BP 160/88 05/01/18 18:35 Pulse Ox 98 05/01/18 18:35 Lower Extremity Course/Dx - Course Course Of Treatment: 47 y/o female presents to the urgent care c/o left foot pain s/p twisting her foot in her back yard about 2hrs ago today. Pt felt and heard a pop. Pain is 8/10 w/ walking, 5/10 w/ rest associated w/ mild swelling in the dorsal mid foot. Pt hasn't take anything to alleviate symptoms. Pt denies fever, numbness or tingling sensation over the toes or foot, calf pain, SOB, chest pain, abdominal pain, N/V/D. Pt can't recalled if she has any injury in the past. Hx obtained.Pt w/ point tenderness w/ mild swelling over the dorsal side of mid foot on examination. RT foot X-ray ordered, Impression:There a small fragment at the dorsal aspect of the midfoot from a stable 2009 remote injury. No acute osseous injury noted and mild osteoarthritis as per radiologist. Pt's foot immobilized with quentin-bandage and given a Cam-Tyson to avoid flexion. Advised RICE, and contineu takign Celebrex Po she has at home for pain. Also advised to use her crutches to avoid weight bearing, If not improvement of symptoms to f/u with Orthopedic DR Cantu referral in 1 week for further evaluation and treatment. Pt's BP is elevated today advised to decrease salt in diet, monitor BP and f/u with PCP for further management. Pt understood and agreed with D/C instructions. Pt left the clinic ambulating w/ help of crutches. - Differential Dx/Diagnosis Differential Diagnosis/HQI/PQRI: Arthritis, Fracture (Closed), Gout, Sprain, Strain, Tendonitis Provider Diagnoses: 1- RT foot sprain. 2- Osteoarthritis. 3- Elevated BP w/o Hx of HTN Discharge - Sign-Out/Discharge Documenting (check all that apply): Discharge/Admit/Transfer - D/C home - Discharge Plan Condition: Stable Disposition: HOME Patient Education Materials: Foot Sprain (ED) Forms: *Work Release Referrals: Danish Cantu MD [Medical Doctor] - 1 Week Mino Lyon MD [Primary Care Provider] - 1 Week Additional Instructions: 1-Please continue taking Celebrex you have at home as directed to alleviate pain and swelling. 2-Please apply ice, keep your foot immobilized with the Quentin bandage and Cam tyson. Avoid strenuous exercise or standing for long periods of time. Use the crutches to avoid weight bearing until symptoms resolve 3- Please f/u with your PCP or Orthopedic DR Cantu in 7 days if not improvement of symptoms for further evaluation and treatment. 4-Your BP is elevated today. please decrease salt in your diet, monitor BP and if it continues to be elevated please f/u with your PCP for further management - Billing Disposition and Condition Condition: STABLE Disposition: HOME
[2018-05-01] MEDS ORDERED: Ibuprofen TAB* 400 MG PO ONE (19:01)
--- NOTE | 2018-05-01 19:36 | RAD ---
HISTORY: Right foot pain status post injury COMPARISONS: July 11, 2010 VIEWS: 3, Frontal, lateral, and oblique views of the right foot FINDINGS: BONE DENSITY: Normal. BONES: There is a small bone fragment along the dorsal aspect of the midfoot. This is stable from 2010 examination suggestive of remote avulsion injury. There is no acute displaced fracture. There are posterior calcaneal enthesophytes. JOINTS: There is mild osteoarthritis of the midfoot. ALIGNMENT: There is no dislocation. SOFT TISSUES: Unremarkable. OTHER FINDINGS: None. IMPRESSION: NO ACUTE OSSEOUS INJURY. IF SYMPTOMS PERSIST, RECOMMEND REPEAT IMAGING.
== END 2018-05-01 20:12 | disposition home or self-care (01) ==
LOC: UCCORT 18:10
DX: S93.601A Unspecified sprain of right foot, initial encounter (principal); X50.0XXA Overexertion from strenuous movement or load, initial encounter; Y93.9 Activity, unspecified; Y92.007 Garden or yard of unspecified non-institutional (private) residence as the place of occurrence of the external cause; M19.90 Unspecified osteoarthritis, unspecified site; R03.0 Elevated blood-pressure reading, without diagnosis of hypertension; Z88.0 Allergy status to penicillin; Z88.2 Allergy status to sulfonamides; Z88.8 Allergy status to other drugs, medicaments and biological substances; E11.9 Type 2 diabetes mellitus without complications; Z79.4 Long term (current) use of insulin; F17.210 Nicotine dependence, cigarettes, uncomplicated
CPT/HCPCS: 99213; A9270-GY; G0463

== ENCOUNTER 2018-08-21 18:26 | Emergency (ER) | payer OTHER ==
[2018-08-21 19:22] VITALS: BP 173/97
[2018-08-21] MEDS ORDERED: Benzonatate CAP* 100 MG PO ONE (20:40)
[2018-08-21] MEDS ORDERED: Azithromycin TAB* 250 MG PO ONE (20:40)
--- NOTE | 2018-08-21 20:49 | ED ---
Respiratory - HPI Summary HPI Summary: 47 year old female with history of COPD and type 2 DM presents with 5 day history of progressively worsening chest congestion, SOB, wheezing, and non- productive cough. Today developed sore throat and bilateral ear pain. Denies fever, chills, chest pain, abdominal pain, nausea, or vomiting. Has used her rescue inhaler 2-3 times in past 5 days. - History of Current Complaint Chief Complaint: UCGeneralIllness Stated Complaint: SORE EARS, THROAT, AND CHEST CONGESTION Time Seen by Provider: 08/21/18 20:31 Hx Obtained From: Patient Onset/Duration: Gradual Onset, Lasting Days Timing: Constant Initial Severity: Mild Current Severity: Moderate Pain Intensity: 7 Character: Wheezing, Cough (Nonproductive) Sputum Amount: None Aggravating Factor(s): URI Alleviating Factor(s): MDI (Frequency Of Use) - 2-3 times in 5 days Associated Signs and Symptoms: SOB, URI, Wheezing, Nasal Congestion, Dyspnea - Allergy/Home Medications Allergies/Adverse Reactions: Allergies Allergy/AdvReac Type Severity Reaction Status Date / Time amoxicillin Allergy Hives Verified 08/21/18 19:11 doxycycline Allergy Hives Verified 08/21/18 19:11 levofloxacin Allergy Rash Verified 08/21/18 19:11 Sulfa (Sulfonamide Allergy Hives Verified 08/21/18 19:11 Antibiotics) sulfamethoxazole Allergy Hives Verified 08/21/18 19:11 [From Bactrim] trimethoprim [From Bactrim] Allergy Hives Verified 08/21/18 19:11 PMH/Surg Hx/FS Hx/Imm Hx Endocrine/Hematology History: Reports: Hx Diabetes - type 2 with insulin tx, Hx Thyroid Disease Cardiovascular History: Reports: Hx Hypertension, Other Cardiovascular Problems/ Disorders - IDDM/ DKA Respiratory History: Reports: Hx Asthma - Surgical History Surgery Procedure, Year, and Place: Left wrist surgery,Right elbow surgery, 2 Thyroidectomies, B/L carpal tunnel surgery,L knee ligament repair 1988. Infectious Disease History: No Infectious Disease History: Denies: Traveled Outside the [place] in Last 30 Days - Family History Known Family History: Positive: Cardiac Disease, Hypertension, Diabetes - Social History Occupation: Employed Full-time Lives: With Family Alcohol Use: Weekly Alcohol Amount: 1 Substance Use Type: Reports: None Hx Tobacco Use: Yes Smoking Status (MU): Heavy Every Day Tobacco Smoker Type: Cigarettes Amount Used/How Often: 1 PPD Length of Time of Smoking/Using Tobacco: 25 YRS Have You Smoked in the Last Year: Yes Review of Systems Constitutional: Negative Eyes: Negative Positive: Sore Throat, Ear Ache Cardiovascular: Negative Positive: Shortness Of Breath, Cough, Other - wheezing Gastrointestinal: Negative Skin: Negative All Other Systems Reviewed And Are Negative: Yes Physical Exam Triage Information Reviewed: Yes Vital Signs On Initial Exam: Initial Vitals Temp Pulse Resp BP Pulse Ox 97.4 F 83 12 173/97 99 08/21/18 19:15 08/21/18 19:15 08/21/18 19:15 08/21/18 19:15 08/21/18 19:15 Vital Signs Reviewed: Yes Appearance: Positive: No Pain Distress, Ill-Appearing - chronically Skin: Positive: Warm, Skin Color Reflects Adequate Perfusion, Dry Eyes: Positive: Conjunctiva Clear. Negative: Discharge ENT: Positive: Hearing grossly normal, Pharyngeal erythema - mild with post- nasal drip, Nasal congestion, Nasal drainage, TMs normal, Uvula midline. Negative: Tonsillar swelling, Tonsillar exudate Neck: Positive: Supple, Nontender, No Lymphadenopathy Respiratory/Lung Sounds: Positive: Breath Sounds Present, Wheezes - Few scattered wheezes that cleared with cough, Other - Non-productive cough. Negative: Rales, Rhonchi Cardiovascular: Positive: RRR, S1, S2. Negative: Murmur Neurological: Positive: Alert, Oriented to Person Place, Time Diagnostics - Vital Signs Vital Signs Temp Pulse Resp BP Pulse Ox 08/21/18 19:15 97.4 F 83 12 173/97 99 - Laboratory Lab Statement: Any lab studies that have been ordered have been reviewed, and results considered in the medical decision making process. Disposition - Course Course Of Treatment: 47 year old female with history asthma presents with 5 day history of progressively worsening chest congestion, SOB, wheezing, and non- productive cough. Exam revealed scatttered wheezes that clear with cough. Heavy smoker. Will cover with Z-pack and provide Tessalon Perles for cough. She is to follow up with her PCP within 5 days for reevaluation. - Diagnoses Provider Diagnoses: Acute bronchitis with asthma Discharge - Sign-Out/Discharge Documenting (check all that apply): Patient Departure All imaging exams completed and their final reports reviewed: No Studies - Discharge Plan Condition: Stable Disposition: HOME Prescriptions: Azithromycin 250 mg PO DAILY #4 tablet Benzonatate CAP* [Tessalon 100 MG CAP*] 100 mg PO TID PRN #30 cap PRN Reason: Cough Patient Education Materials: Acute Bronchitis (ED) Referrals: Mino Lyon MD [Primary Care Provider] - 5 Days Additional Instructions: You have been prescribed an antibiotic called azithromycin for your infection. You were given the first dose in the clinic tonight. Starting tomorrow take 1 tablet daily for 4 days. May use Tessalon Perles 1 cap every 8 hours as needed for cough. Be sure to drink plenty of fluids. Take acetaminophen (Tylenol) as needed for any aches pains or fever. Continue to use your albuterol inhaler 2 puffs every 4-6 hours as needed for any shortness of breath or wheezing. I would recommend you consider stopping smoking as this can worsen your symptoms. Your blood pressure was elevated in the clinic tonight. I would recommend that you follow up with your primary care provider in 5 days to have this rechecked.. Seek immediate medical attention in the emergency room if you have a persistent fever greater than 100.5 F despite taking acetaminophen, have persistent wheezing despite using her albuterol inhaler, you have shortness of breath, chest pain, or any worsening of symptoms. - Billing Disposition and Condition Condition: STABLE Disposition: Home
== END 2018-08-21 20:53 | disposition home or self-care (01) ==
LOC: UCCORT 18:26
DX: J20.9 Acute bronchitis, unspecified (principal); J45.909 Unspecified asthma, uncomplicated; E11.9 Type 2 diabetes mellitus without complications; Z88.0 Allergy status to penicillin; Z88.1 Allergy status to other antibiotic agents; Z79.84 Long term (current) use of oral hypoglycemic drugs; I10 Essential (primary) hypertension; F17.210 Nicotine dependence, cigarettes, uncomplicated
CPT/HCPCS: 99212; A9270-GY; G0463

== ENCOUNTER 2019-08-31 10:57 | Emergency (ER) | payer OTHER ==
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
--- OUTSIDE RECORDS SUMMARY | 2019-08-31 11:04 | XMS REPORT | Continuity of Care Document ---
:1970 External Reference #:[id number] Author Name Skyler Martinez DO MPH Address [address] [place] [address] [address] [place] [address] Care Team Providers Name Role Phone Mino Lyon M.D. - Internal Care Team Information Rn Plastics Medicine Problems Active Problems Provider Date Type 2 diabetes mellitus Skyler Martinez DO MPH Onset: 04/28/2009 Social History Type Date Description Comments Sex Unknown Cigarette Use Current Cigarette Smoker 1/2 Pack Daily ETOH Use Rarely consumes alcohol Tobacco Use Start: Unknown Patient is a current smoker, smokes every day Smoking Status Reviewed: 07/20/19 Patient is a current smoker, smokes every [...] Available Vital Signs Date Vital Result Comment 07/20/2019 2:48pm BP Systolic 128 mmHg BP Diastolic 80 mmHg Heart Rate 84 /min Respiratory Rate 20 /min Height 65 inches 5'5" Weight 234.00 lb Pain Level 4 Pain at this time. Pain Level With Medicine 2 on average with meds Pain Level Without Medicine 8 without meds BMI (Body Mass Index) 38.9 kg/m2 06/23/2019 2:34pm BP Systolic 130 mmHg BP Diastolic 72 mmHg Heart Rate 78 /min Respiratory Rate 20 /min Height 65 inches 5'5" Weight 244.00 lb Pain Level 6 Pain at this time. Pain Level With Medicine 5 on average with meds Pain Level Without Medicine 9 without meds BMI (Body Mass Index) 40.6 kg/m2 Results Description No Information Available Procedures Date Code Description Status 07/20/2019 52086 Omt 1-2 Body Regions Completed 06/23/2019 17546 Omt 1-2 Body Regions Completed 05/25/2019 17654 Omt 1-2 Body Regions Completed 04/23/2019 49942 Omt 1-2 Body Regions Completed 03/26/2019 13857 Omt 1-2 Body Regions Completed 02/23/2019 93011 Omt 1-2 Body Regions Completed Medical Devices Description No Information Available Encounters Type Date Location Provider Dx Diagnosis Office Visit 07/20/2019 Main Office as Of Skyler Martinez DO, G89.21 Chronic pain due 3:15p 01/02/14 MPH to trauma M54.2 Cervicalgia M99.01 Segmental and somatic dysfunction of cervical region Z79.891 nursing home (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 analgesic Z79.891 nursing home (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 analgesic Office Visit 06/23/2019 3:00p Main Office as Skyler Martinez G89.21 Chronic pain due Of 01/02/14 DO, MPH to trauma M54.2 Cervicalgia M99.01 Segmental and somatic dysfunction of cervical region Z79.891 nursing home (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 analgesic 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 Office Visit 05/25/2019 2:45p Main Office as Skyler Martinez G89.21 Chronic pain due Of 01/02/14 DO, MPH to trauma M54.2 Cervicalgia M99.01 Segmental and somatic dysfunction of cervical region 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 Z79.891 nursing home (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 analgesic Office Visit 04/23/2019 2:45p Main Office as Skyler Martinez G89.21 Chronic pain due Of 01/02/14 DO, MPH to trauma M54.2 Cervicalgia M99.01 Segmental and somatic dysfunction of cervical region 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 Office Visit 03/26/2019 3:30p Main Office as Skyler Martinez G89.21 Chronic pain due Of 01/02/14 DO, MPH to trauma M54.2 Cervicalgia M99.01 Segmental and somatic dysfunction of cervical region M54.5 Low back pain 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 Z79.891 nursing home (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 analgesic Office Visit 02/23/2019 3:00p Main Office as Skyler Martinez G89.21 Chronic pain due Of 01/02/14 DO, MPH to trauma M54.2 Cervicalgia M99.01 Segmental and somatic dysfunction of cervical region Z79.891 nursing home (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 analgesic Z79.891 nursing home (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 analgesic Assessments Date Code Description Provider 07/20/2019 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 Skyler Martinez DO MPH 07/20/2019 M54.2 Cervicalgia Skyler Martinez DO, MPH 07/20/2019 M99.01 Segmental and somatic dysfunction of Skyler Martinez DO, MPH cervical region 07/20/2019 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 Martinez, Skyler , DO, MPH 07/20/2019 Z79.891 nursing home (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 analgesic Martinez, Skyler , DO, MPH 06/23/2019 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 Martinez, Skyler, DO, MPH 06/23/2019 M54.2 Cervicalgia Martinez, Skyler, DO, MPH 06/23/2019 M99.01 Segmental and somatic dysfunction of Martinez, Skyler, DO, MPH cervical region 06/23/2019 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 Martinez, Skyler , DO, MPH 06/23/2019 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 Martinez, Skyler , DO, MPH 05/25/2019 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 Martinez, Skyler, DO, MPH 05/25/2019 M54.2 Cervicalgia Martinez, Skyler, DO, MPH 05/25/2019 M99.01 Segmental and somatic dysfunction of Martinez, Skyler, DO, MPH cervical region 05/25/2019 Z79.891 nursing home (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 analgesic Martinez, Skyler , DO, MPH 05/25/2019 Z79.891 nursing home (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 analgesic Martinez, Skyler , DO, MPH 04/23/2019 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 Martinez, Skyler, DO, MPH 04/23/2019 M54.2 Cervicalgia Martinez, Skyler, DO, MPH 04/23/2019 M99.01 Segmental and somatic dysfunction of Martinez, Skyler, DO, MPH cervical region 04/23/2019 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 Martinez, Skyler , DO, MPH 04/23/2019 Z79.891 nursing home (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 analgesic Martinez, Skyler , DO, MPH 03/26/2019 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 Martinez, Skyler, DO, MPH 03/26/2019 M54.2 Cervicalgia Martinez, Skyler, DO, MPH 03/26/2019 M99.01 Segmental and somatic dysfunction of Skyler Martinez DO MPH cervical region 03/26/2019 M54.5 Low back pain Skyler Martinez DO MPH 03/26/2019 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 Skyler Martinez DO MPH 03/26/2019 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 Skyler Martinez DO MPH 02/23/2019 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 Skyler Martinez DO MPH 02/23/2019 M54.2 Cervicalgia Skyler Martinez DO MPH 02/23/2019 M99.01 Segmental and somatic dysfunction of Skyler Martinez DO MPH cervical region 02/23/2019 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 Symptoms and complaints discussed and reviewed today. No significant changes in physical findings. Continue current medical pain management.M54.2 CervicalgiaComments:Chronic. Symptoms and complaints discussed and reviewed today. No significant changes in physical findings. Continue current medical pain management.M99.01 Segmental and somatic dysfunction of cervical regionComments:Chronic. Symptoms and complaints discussed and reviewed today. Somatic dysfunctions noted warrantingOMT. Continue current medical pain management and OMT. [id number]. OMT performed.Z79.891 nursing home (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 analgesicNew Labs:Urine Drug Screen, Ordered: 07/20/19Comments:Urine drug screen sample taken. Rapid Point of [...] lab.The following tests were ordered:6 AM, AMPH, JABARI, [place], BUP, CARIS, COCM, COT, ETG, FENT, [...] and ongoing re-assessment of opioid therapy. Per [facility] Workers[employer] Compensation Board, [place] Non-Acute Pain Medical Treatment Guidelines, section F.3.d.i. This [...] is considered standard of care at this clinic.AllComments:Continue current medical pain management; injection therapy, osteopathic [...] while maintaining satisfactory side effect profile andminimizing group home end-organ damage. Importance of regular nutrition throughout the day discussed.Activity as toleratedContinue with PCP Functional Status Description No Information Available Mental Status Description No Information Available Referrals Description No Information Available
--- OUTSIDE RECORDS SUMMARY | 2019-08-31 11:04 | XMS REPORT | Summary of Care ---
:1970 Author Organization [facility] Address [address] [place] [address] Care Team Providers Name Role Phone Mino Lyon Primary Care Provider Reason for Visit Reason Comments Diabetes Encounter Details Date Type Department Care Team Description 08/28/2019 Office Visit [place] [facility] Mino Lyon, Uncontrolled type 2 diabetes mellitus without complication (HCC) (Primary Dx); Medicine Tobacco use disorder [address] [place], [place] [id number] [place] [address] [phone] Allergies Active Allergy Reactions Severity Noted Date Comments Moxatag Hives 03/27/2012 Doxycycline Dermatologic Reaction 01/08/2019 Levaquin Rash 03/27/2012 Sulfa Antibiotics Hives 03/27/2012 Patient is allergic to ALL SULFA documented as of this encounter (statuses as of 08/28/2019) Medications Medication Sig Dispensed Refills Start Date End Date Status carisoprodol (SOMA) 350 Take 350 mg by 0 Active MG Oral Tab mouth FOUR TIMES DAILY. celeCOXIB (CELEBREX) 200 Take 200 mg by 0 Active MG Oral Cap mouth DAILY. docusate sodium (COLACE) Take 400 mg by 0 Active 100 MG Oral Cap mouth EVERY BEDTIME. cetirizine (ZYRTEC) 10 Take 10 mg by 0 Active MG Oral Tab mouth DAILY. ibuprofen (MOTRIN) 200 Take 800 mg by 0 Active MG Oral Tab mouth EVERY BEDTIME. Oxymorphone HCl (OPANA) Take 1 Each by 0 Active 5 MG Oral Tab mouth FOUR TIMES DAILY. Glucose Blood In Vitro 1 Strip by In 100 Strip 11 04/04/2015 Active StripIndications: Type 2 Vitro route diabetes mellitus (HCC) DAILY. Additional information Patient taking differently: 1 Strip In Vitro DAILY, Freestyle lite test strips, Reported on 09/13/2016 2:58 PM Glucose Blood (ONE TOUCH 1 Each by In 100 Each 5 Active ULTRA TEST STRIPS) In Vitro route THREE Vitro StripIndications: TIMES DAILY. Diabetes (HCC) 250.00 Insulin Dependent Lancets Does not apply 1 Each by Does 300 Each 3 Active Misc not apply route 017 THREE TIMES DAILY. Insurance preference Blood Glucose Monitoring 1 Each by Does 1 Device 0 Active Suppl (GNP EASY TOUCH not apply route 017 GLUCOSE METER) Does not THREE TIMES apply Device DAILY. Meter insurancet preference lisinopril (PRINIVIL, Take 1 Tab by 90 Tab 3 Active ZESTRIL) 10 MG Oral mouth DAILY. 018 TabIndications: Essential hypertension atorvastatin (LIPITOR) Take 1 Tab by 90 Tab 3 Active 20 MG Oral mouth DAILY. 018 TabIndications: Dyslipidemia levothyroxine Take 1 Tab by 102 Tab 3 Active (SYNTHROID) 200 MCG Oral mouth EVERY 018 Tab BEDTIME. On Weekends, take 1 1/2 tablet escitalopram (LEXAPRO) Take 1 Tab by 90 Tab 3 Active 10 MG Oral mouth DAILY. 019 TabIndications: Depression, unspecified depression type HUMALOG KWIKPEN 100 INJECT 18 UNITS 15 Each 47 Active UNIT/ML Subcutaneous BENEATH THE SKIN 019 Solution Pen-injector 3 TIMES A DAY BEFORE MEALS metFORMIN HCL 1000 MG TAKE 2 TABLETS BY 180 Tab 3 Active Oral TabIndications: MOUTH ONCE DAILY 019 Diabetes mellitus AT BEDTIME without complication (HCC) Insulin Pen Needle 1 Each by Does 100 Each 3 Active (ULTILET PEN NEEDLE) 31G not apply route 019 X 8 MM Does not apply DAILY. [facility] VENTOLIN HFA 108 (90 Take 2 Puffs by 54 Each 6 Active Base) MCG/ACT Inhalation inhalation EVERY 019 Aero SolnIndications: FOUR HOURS Tobacco use disorder NEEDED (asthma). GLARGINE insulin, Inject 28 Units 5 Each 11 Active LONG-Acting, (LANTUS) beneath the skin 019 100 UNIT/ML Subcutaneous EVERY BEDTIME. Solution azithromycin (ZITHROMAX) Take 2 pills on 6 Tab 0 Active 250 MG Oral Tab the first day and 019 1 pill each day for 4 days Continuous Blood Gluc 1 Device by Does 1 Device 0 Discontinued Ballet Master/Mistress (FREESTYLE not apply route 018 019 (Provider SETH READER) Does not DAILY. Discontinued) apply Device GLARGINE insulin, Inject 28 Units 5 Each Discontinued LONG-Acting, (LANTUS) beneath the skin 018 019 (Reorder) 100 UNIT/ML Subcutaneous EVERY BEDTIME. SolutionIndications: Diabetes mellitus without complication (HCC) Insulin Pen Needle 1 Each by Does 100 Each 3 Discontinued (ULTILET PEN NEEDLE) 31G not apply route 019 019 (Reorder) X 8 MM Does not apply DAILY. MiscIndications: Diabetes mellitus without complication (HCC) VENTOLIN HFA 108 (90 INHALE 2 PUFFS BY 54 Each 3 Discontinued Base) MCG/ACT Inhalation MOUTH EVERY 4 019 019 (Reorder) Aero SolnIndications: HOURS NEEDED Tobacco use disorder DIRECTED Insulin Lispro (HUMALOG Inject 18 Units 4 Each Discontinued KWIKPEN) 100 UNIT/ML beneath the skin 019 019 (Reorder) Subcutaneous Solution THREE TIMES DAILY Pen-injector BEFORE MEALS. Insulin Lispro (HUMALOG Inject 18 Units 4 Each Discontinued KWIKPEN) 100 UNIT/ML beneath the skin 019 019 (Duplicate Order) Subcutaneous Solution THREE TIMES DAILY Pen-injector BEFORE MEALS. documented as of this encounter (statuses as of 08/28/2019) Active Problems Problem Noted Date BMI 40.0-44.9, adult 08/28/2019 Uncontrolled type 2 diabetes mellitus without complication, with long-term current use of insulin Hypertension Tobacco use disorder Chronic midline low back pain without sciatica Overview: Dr. Juan munson Hypothyroidism Overview: post-thyroidectomy for lymphocytic thyroiditis documented as of this encounter (statuses as of 08/28/2019) Resolved Problems Problem Noted Date Resolved Date Chronic pain syndrome 03/27/2012 documented as of this encounter (statuses as of 08/28/2019) Immunizations Name Administration Dates Next Due Influenza (IM) Preservative Free 09/11/2016, 10/21/2012 PNEUMOCOCCAL POLYSACCHARIDE VACCINE 06/27/2012 documented as of this encounter Social History Tobacco Use Types Packs/Day Years Used Date Current Every Day Smoker Cigarettes 1 18 Smokeless Tobacco: Never Used Alcohol Use Drinks/Week oz/Week Comments Yes Rarely Sex Assigned at Date Recorded Not on file Job Start Date Occupation Industry Not on file Not on file Not on file Travel History Travel Start Travel End No recent travel history available. documented as of this encounter Last Filed Vital Signs Vital Sign Reading Time Taken Comments Blood Pressure 124/78 08/28/2019 2:55 PM EDT Pulse 86 08/28/2019 2:55 PM EDT Temperature - - Respiratory Rate - - Oxygen Saturation 96% 08/28/2019 2:55 PM EDT Inhaled Oxygen Concentration - - Weight 111.6 kg (246 lb) 08/28/2019 2:55 PM EDT Height 165.1 cm (5' 5") 08/28/2019 2:55 PM EDT Body Mass Index 40.94 08/28/2019 2:55 PM EDT documented in this encounter Patient Instructions Patient InstructionsMino Lyon MD - 08/28/2019 3:00 PM EDTBlood test today and blood test three month Refill medication Finger stick once daily You need to cut down cigarette use to ten per day Zithromax antibiotic if not better in 2-3 days documented in this encounter Progress Notes Mino Lyon MD - 08/28/2019 3:00 PM EDT PATIENT: Kaern Ivey : 1970 DATE OF SERVICE: 08/28/2019 CHIEF COMPLAINT: Chief Complaint Patient presents with Diabetes Subjective HISTORY OF PRESENT ILLNESS: Karen Ivey is a 48-y.o. female. HPI Here for follow up to diabetes mellitus and get medication refills She uses lantus and premeal humalog she rarely checks finger stick Denies diabetes mellitus related symptoms no hypoglycemia Lab Results Component Value Date GLYCO 9.9 (H) 05/14/2019 GLYCOHEMOGLO 10.0 (A) 02/05/2018 She struggles with weight Wt Readings from Last 3 Encounters: 08/28/19 246 lb (111.6 kg) 02/10/19 236 lb (107 kg) 09/23/18 252 lb (114.3 kg) She smokes 1 pack per day down from 2.5 pack per day she smokes in response to stress at work and home she wants to cut down not ready to quit She has asthma and uses albuterol metered dose inhaler twice daily Most days she notes 2 weeks cough and yellow sputum no fevers or new shortness of breath Patient Active Problem List Diagnosis Uncontrolled type 2 diabetes mellitus without complication, with long- term current use of insulin ([facility]) Hypertension Tobacco use disorder Chronic midline low back pain without sciatica Hypothyroidism BMI 40.0-44.9, adult ([facility]) Family History Problem Relation Age of Onset Diabetes Brother Muscular Dystrophy Brother Cancer Father lung Current Outpatient Medications Medication Sig atorvastatin (LIPITOR) 20 MG Oral Tab Take 1 Tab by mouth DAILY. azithromycin (ZITHROMAX) 250 MG Oral Tab Take 2 pills on the first day and 1 pill each day for 4 days Blood Glucose Monitoring Suppl (GNP EASY TOUCH GLUCOSE METER) Does not apply Device 1 Each byDoes not apply route THREE TIMES DAILY. Meter insurancet preference carisoprodol (SOMA) 350 MG Oral Tab Take 350 mg by mouth FOUR TIMES DAILY. celeCOXIB (CELEBREX) 200 MG Oral Cap Take 200 mg by mouth DAILY. cetirizine (ZYRTEC) 10 MG Oral Tab Take 10 mg by mouth DAILY. docusate sodium (COLACE) 100 MG Oral Cap Take 400 mg by mouth EVERY BEDTIME. escitalopram (LEXAPRO) 10 MG Oral Tab Take 1 Tab by mouth DAILY. GLARGINE insulin, LONG-Acting, (LANTUS) 100 UNIT/ML Subcutaneous Solution Inject 28 Units beneath the skin EVERY BEDTIME. Glucose Blood (ONE TOUCH ULTRA TEST STRIPS) In Vitro Strip 1 Each by In Vitro route THREE TIMES DAILY. 250.00 Insulin Dependent Glucose Blood In Vitro Strip 1 Strip by In Vitro route DAILY. (Patient taking differently: 1 Strip by In Vitro route DAILY. Freestyle lite test strips) HUMALOG KWIKPEN 100 UNIT/ML Subcutaneous Solution Pen-injector INJECT 18 UNITS BENEATH THE SKIN 3 TIMES A DAY BEFORE MEALS ibuprofen (MOTRIN) 200 MG Oral Tab Take 800 mg by mouth EVERY BEDTIME. Insulin Pen Needle (ULTILET PEN NEEDLE) 31G X 8 MM Does not apply Misc 1 Each by Does not apply route DAILY. Lancets Does not apply Misc 1 Each by Does not apply route THREE TIMES DAILY. Insurance preference levothyroxine (SYNTHROID) 200 MCG Oral Tab Take 1 Tab by mouth EVERY BEDTIME. On Weekends, take 1 1/2 tablet lisinopril (PRINIVIL, ZESTRIL) 10 MG Oral Tab Take 1 Tab by mouth DAILY. metFORMIN HCL 1000 MG Oral Tab TAKE 2 TABLETS BY MOUTH ONCE DAILY AT BEDTIME Oxymorphone HCl (OPANA) 5 MG Oral Tab Take 1 Each by mouth FOUR TIMES DAILY. VENTOLIN HFA 108 (90 Base) MCG/ACT Inhalation Aero Soln Take 2 Puffs by inhalation EVERY FOUR HOURS NEEDED (asthma). No current facility-administered medications for this visit. Allergies Allergen Reactions Amoxicillin [Moxatag] Hives Doxycycline Dermatologic Reaction Levaquin Rash Sulfa Antibiotics Hives Patient is allergic to ALL SULFA Social History Socioeconomic History Marital status: Spouse name: Not on file Number of children: Not on file Years of education: Not on file Highest education level: Not on file Occupational History Not on file Social Needs Financial resource strain: Not on file Food insecurity: Worry: Not on file Inability: Not on file Transportation needs: Medical: Not on file Non-medical: Not on file Tobacco Use Smoking status: Current Every Day Smoker Packs/day: 1.00 Years: 18.00 Pack years: 18.00 Types: Cigarettes Smokeless tobacco: Never Used Substance and Sexual Activity Alcohol use: Yes Comment: Rarely Drug use: No Sexual activity: Never Lifestyle Physical activity: Days per week: Not on file Minutes per session: Not on file Stress: Not on file Relationships Social connections: Talks on phone: Not on file Gets together: Not on file Attends nondenominational service: Not on file Active member of club or organization: Not on file Attends meetings of clubs or organizations: Not on file Relationship status: Not on file Intimate partner violence: Fear of current or ex partner: Not on file Emotionally abused: Not on file Physically abused: Not on file Forced sexual activity: Not on file Other Topics Concern Back Care Not Asked Bike Helmet Not Asked Blood Transfusions Not Asked Caffeine Concern Not Asked Exercise Not Asked Hobby Hazards Not Asked International Travel Not Asked Service Not Asked Occupational Exposure Not Asked Seat Belt Not Asked Self-Exams Not Asked Sleep Concern No Special Diet No Stress Concern No Weight Concern Yes Comment: max weight 258 Social History Narrative Lives with mother. 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 Over the last 2 weeks, have you been feeling down, depressed, anxious, or hopeless?: 0 Over the past 2 weeks, have you felt little interest or pleasure in doing things ?: 0 ROS no cardiovascular or eye symptoms Objective PHYSICAL EXAM: VITALS: BP 124/78 (BP Location: Right arm, Patient Position: Sitting) | Pulse 86 | Ht 5' 5" (1.651 m) | Wt 246 lb (111.6 kg) | SpO2 96% | BMI 40.94 kg/m Body mass index is 40.94 kg/m. Physical Exam S1 and S2 normal, no murmurs, clicks, gallops or rubs. Regular rate and rhythm. Chest is clear; nowheezes or rales. No edema or JVD. Left foot diabetic exam: Visual exam. Foot appears normal without wounds or signs of infection: yes Sensory exam. Patient can feel the monofilament on the foot: yes Pulse exam. A pulse is palpable at either the foot or ankle: yes Right foot diabetic exam: Visual exam. Foot appears normal without wounds or signs of infection: yes Sensory exam. Patient can feel the monofilament on the foot: yes Pulse exam. A pulse is palpable at either the foot or ankle: yes ASSESSMENT / IMPRESSION: ICD-9-CM ICD-10-CM 1. Diabetes mellitus without complication (HCC) not at goal hemoglobin A1C today and continue current medications consider up titration of basal insulin 250.00 E11.9 Insulin Pen Needle (ULTILET PEN NEEDLE) 31G X 8 MM Does not apply Misc GLARGINE insulin, LONG-Acting, (LANTUS) 100 UNIT/ML Subcutaneous Solution GLYCOHEMOGLOBIN A1C .2. Tobacco use disorder I spent 6 minutes in direct face to face counseling with the patient regarding smoking cessation. A plan was developed with the patient to cut down cigarette use over the next 12 weeks. A long term care administrator goal to set a quit date was discussed with patient. Pharmacologic and behavioral strategies for tobacco cessation were dicussed at length. ([id number]). 305.1 F17.200 VENTOLIN HFA 108 (90 Base) MCG/ACT Inhalation Aero Soln 3. Bacterial bronchitis- The patient is advised to use the prescribed antibiotic zithromax only if symptoms persist for 2-3 more days Patient Instructions Blood test today and blood test three month Refill medication Finger stick once daily You need to cut down cigarette use to ten per day Zithromax antibiotic if not better in 2-3 days Mino Lyon MD 08/28/2019 15:24 documented in this encounter Plan of Treatment Name Type Priority Associated Diagnoses Date/Time GLYCOHEMOGLOBIN A1C Lab Routine 08/28/2019 3:22 PM EDT COMPREHENSIVE METABOLIC Lab Routine 08/28/2019 3:22 PM PANEL EDT LIPID PROFILE Lab Routine 08/28/2019 3:22 PM EDT Health Maintenance Due Date Last Done Comments Diabetic Eye Exam 1970 MAMMOGRAM (SCREENING) 09/11/2017 09/11/2016, 09/11/2016 COLONOSCOPY SCREENING 2018 ZOSTER IMMUNIZATION SERIES 2018 (1 of 2) FOOT EXAM 02/05/2019 02/05/2018, 02/05/2018, 02/05/2018, Additional history exists INFLUENZA VACCINE (#1) 2019 09/11/2016, 10/21/2012 HEMOGLOBIN A1C 08/14/2019 05/14/2019, 02/10/2019, 09/23/2018, Additional history exists PAP SMEAR 09/11/2019 09/11/2016, 09/11/2016, 09/11/2016 LIPID DISORDER SCREENING 02/11/2020 02/10/2019, 09/23/2018, 09/23/2018, Additional history exists DEPRESSION SCREENING 08/28/2020 08/28/2019 PNEUMOCOCCAL 0-64 YRS Completed 06/27/2012 HPV IMMUNIZATION SERIES Aged Out No longer eligible based on patient's age to complete this topic MENINGOCOCCAL VACCINE IMM Aged Out No longer eligible based on patient's age to complete this topic documented as of this encounter Goals Goal Patient Goal Associated Recent Patient-Stated? Author Type Problems Progress Blood Pressure Blood Pressure 124/78 No Effie, < 140/90 (08/28/2019 HAI Sow 2:55 PM EDT) Note: This is an individualized treatment (blood pressure) goal for Karen Ivey: Displayed above (on the left) is your goal for blood pressure control. Your most recent blood pressure is also shown above, on the right. You should try to achieve blood pressures that are lower than your goal listed above (on the left). Depression screen (PHQ-9) total score < 5 Depression No Estrellita Whitney RN Note: This is an individualized treatment (depression) goal for Karen Ivey: Displayed above is your goal for a depression screening (PHQ-9) score that would indicate good control of your depression. Glycohemoglobin A1c < 7.0 Diabetes 9.9 (05/14/2019 2:31 No Magi Chou FNP PM EDT) Note: This is an individualized treatment (diabetes control, HgbA1C) goal for Karen Ivey: Displayed above is your progress towards your HgbA1C goal. Your goal is shown above (on the left); your most recent HgbA1C is shown on the right. Note that lower numbers are better. Weight loss vs. 18 mo Lifestyle 6 (08/28/2019 2:55 PM No Magi Chou FNP max (lbs) >= 10 EDT) Note: This is an individualized lifestyle goal for Karen Ivey: Your body mass index (BMI) is more than 30. You should lose weight. A reasonable starting goal is to lose 10 pounds. Displayed above is how many pounds you have lost thus far towards your 10 pound weight loss goal. Keep immunizations current Lifestyle No Magi Chou FNP Note: This is an individualized lifestyle goal for Karen Ivey: Please be sure to keep up-to-date on recommended immunizations. For example, this would include a yearly influenza vaccine. Immunization status can be seen by looking at the Health Maintenance sections of your [facility], Plan of Care, and any After Visit Summaries. Keep a regular sleep schedule Lifestyle No Estrellita Whitney RN Note: This is an individualized lifestyle goal for Karen Ivey: Please maintain a regular sleep schedule. This may help with some symptoms of depression. Take all prescribed medications as Self-management No Magi Chou FNP directed Note: This is an individualized self-management goal for Karen Ivey: Please take all prescribed medications as directed. 1. Do not skip doses. If you cannot afford your medications, talk with your doctor. 2. Use a pill reminder system such as a pill box if needed. Your pharmacist can help you with this. 3. Contact your Pharmacy 5 days before your medication runs out. If you cannot take your medications for any reasons, talk with your doctor. 4. Please bring all of your medication bottles and inhalers (or a list of all your medications/inhalers) with you to every visit. Potential barriers to meeting all of your care plan goals will continue to be addressed on an ongoing basis. documented as of this encounter Results Not on filedocumented in this encounter Visit Diagnoses Diagnosis Uncontrolled type 2 diabetes mellitus without complication (HCC) - Primary Tobacco use disorder documented in this encounter Insurance Payer Benefit Plan / Subscriber ID Effective Dates Phone Address Type Group [employer] AETABRAN JEFFRIES xxxxxxxxxx 2011-Present [employer] documented as of this encounter
--- OUTSIDE RECORDS SUMMARY | 2019-08-31 11:04 | XMS REPORT | Continuity of Care Document ---
:1970 External Reference #:[id number] Author Name Skyler Martinez DO MPH Address [address] [place] [address] [address] [place] [address] Care Team Providers Name Role Phone Mino Lyon M.D. 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 Problems Active Problems Provider Date Type [...] Information Available Procedures Date Code Description Status 06/23/2019 94428 Omt 1-2 Body Regions Completed 05/25/2019 98903 Omt 1-2 Body Regions Completed 04/23/2019 44180 Omt 1-2 Body Regions Completed 03/26/2019 19420 Omt 1-2 Body Regions Completed 02/23/2019 61356 Omt 1-2 Body Regions Completed 01/26/2019 52699 Omt 1-2 Body Regions Completed Medical Devices Description No Information Available Encounters Type Date Location Provider Dx Diagnosis Office Visit 06/23/2019 Main Office as Of Skyler Martinez DO, G89.21 Chronic pain due 3:00p 01/02/14 MPH to trauma M54.2 Cervicalgia M99.01 Segmental and somatic dysfunction of cervical region 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 Office Visit 05/25/2019 2:45p Main Office as Skyler Martinez G89.21 Chronic pain due Of 01/02/14 DO, MPH to trauma M54.2 Cervicalgia M99.01 Segmental and somatic dysfunction of cervical region Z79.891 longterm (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 analgesic Z79.891 longterm (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 analgesic Office Visit 04/23/2019 2:45p Main Office as Skyler Martinez G89.21 Chronic pain due Of 01/02/14 DO, MPH to trauma M54.2 Cervicalgia M99.01 Segmental and somatic dysfunction of cervical region Z79.891 longterm (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 analgesic Z79.891 longterm (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 analgesic Office Visit 03/26/2019 3:30p Main Office as Skyler Martinez G89.21 Chronic pain due Of 01/02/14 DO, MPH to trauma M54.2 Cervicalgia M99.01 Segmental and somatic dysfunction of cervical region M54.5 Low back pain 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 Z79.891 longterm (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 analgesic Office Visit 02/23/2019 3:00p Main Office as Skyler Martinez G89.21 Chronic pain due Of 01/02/14 DO, MPH to trauma M54.2 Cervicalgia M99.01 Segmental and somatic dysfunction of cervical region 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 Z79.891 longterm (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 analgesic Office Visit 01/26/2019 3:00p Main Office as Skyler Martinez G89.21 Chronic pain due Of 01/02/14 DO, MPH to trauma M54.2 Cervicalgia M99.01 Segmental and somatic dysfunction of cervical region 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 Assessments Date Code Description Provider 07/20/2019 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 Skyler Martinez DO MPH 07/20/2019 M54.2 Cervicalgia Skyler Martinez DO, MPH 07/20/2019 M99.01 Segmental and somatic dysfunction of Skyler Martinez DO, MPH cervical region 07/20/2019 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 Martinez, Skyler , DO, MPH 07/20/2019 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 Martinez, Skyler , DO, MPH 06/23/2019 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 Martinez, Skyler, DO, MPH 06/23/2019 M54.2 Cervicalgia Martinez, Skyler, DO, MPH 06/23/2019 M99.01 Segmental and somatic dysfunction of Martinez, Skyler, DO, MPH cervical region 06/23/2019 Z79.891 longterm (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 analgesic Martinez, Skyler , DO, MPH 06/23/2019 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 Martinez, Skyler , DO, MPH 05/25/2019 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 Martinez, Skyler, DO, MPH 05/25/2019 M54.2 Cervicalgia Martinez, Skyler, DO, MPH 05/25/2019 M99.01 Segmental and somatic dysfunction of Martinez, Skyler, DO, MPH cervical region 05/25/2019 Z79.891 longterm (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 analgesic Martinez, Skyler , DO, MPH 05/25/2019 Z79.891 longterm (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 analgesic Martinez, Skyler , DO, MPH 04/23/2019 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 Martinez, Skyler, DO, MPH 04/23/2019 M54.2 Cervicalgia Martinez, Skyler, DO, MPH 04/23/2019 M99.01 Segmental and somatic dysfunction of Martinez, Skyler, DO, MPH cervical region 04/23/2019 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 Martinez, Skyler , DO, MPH 04/23/2019 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 Martinez, Skyler , DO, MPH 03/26/2019 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 Martinez, Skyler, DO, MPH 03/26/2019 M54.2 Cervicalgia Martinez, Skyler, DO, MPH 03/26/2019 M99.01 Segmental and somatic dysfunction of MartinezSkyler guadarrama DO, MPH cervical region 03/26/2019 M54.5 Low back pain Skyler Martinez DO, MPH 03/26/2019 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 MartinezSkyler guadarrama DO, MPH 03/26/2019 Z79.891 longterm (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 analgesic Skyler Martinez DO, MPH 02/23/2019 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 MartinezSkyler guadarrama DO, MPH 02/23/2019 M54.2 Cervicalgia MartinezSkyler guadarrama DO, MPH 02/23/2019 M99.01 Segmental and somatic dysfunction of Skyler Martinez DO, MPH cervical region 02/23/2019 Z79.891 longterm (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 analgesic Skyler Martinez DO, MPH 02/23/2019 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 Skyler Martinez DO, MPH 01/26/2019 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 Skyler Martinez DO, MPH 01/26/2019 M54.2 Cervicalgia Skyler Martinez DO, MPH 01/26/2019 M99.01 Segmental and somatic dysfunction of Skyler Martinez DO, MPH cervical region 01/26/2019 Z79.891 longterm (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 analgesic Skyler Martinez DO, MPH 01/26/2019 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 [...] Continue current medical pain management and OMT. [id number]. OMT performed.Z79.891 longterm (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 analgesicNew Labs:Urine Drug [...] and ongoing re-assessment of opioid therapy. Per [place] [employer], [place] Non-Acute Pain Medical Treatment Guidelines, section F.3.d.i. [...] while maintaining satisfactory side effect profile andminimizing senior living end-organ damage. Importance of regular nutrition throughout the day discussed.Activity as toleratedContinue with PCP Functional Status Description No Information Available Mental Status Description No Information Available Referrals Description No Information Available
[2019-08-31 11:08] VITALS: BP 127/76
--- NOTE | 2019-08-31 12:22 | UC ---
Hand/Wrist HPI - HPI Summary HPI Summary: Ms. Ivey tried to prevent a heavy fan from falling and was hit in the right volar wrist. Now her right thumb feels numb especially over the dorsum. She has complete movement. - History Of Current Complaint Chief Complaint: UCUpperExtremity Stated Complaint: WRIST INJURY Time Seen by Provider: 08/31/19 11:20 Hx Obtained From: Patient Hx Last Menstrual Period: 07/27/19 Onset/Duration: Sudden Onset Severity Initially: Moderate Pain Intensity: 7 Character Of Pain: Aching Aggravating Factor(s): Movement Alleviating Factor(s): Nothing Associated Signs And Symptoms: Positive: Negative - Allergies/Home Medications Allergies/Adverse Reactions: Allergies Allergy/AdvReac Type Severity Reaction Status Date / Time amoxicillin Allergy Hives Verified 08/31/19 11:08 doxycycline Allergy Hives Verified 08/31/19 11:08 levofloxacin Allergy Rash Verified 08/31/19 11:08 Sulfa (Sulfonamide Allergy Hives Verified 08/31/19 11:08 Antibiotics) sulfamethoxazole Allergy Hives Verified 08/31/19 11:08 [From Bactrim] trimethoprim [From Bactrim] Allergy Hives Verified 08/31/19 11:08 PMH/Surg Hx/FS Hx/Imm Hx Previously Healthy: Yes - Surgical History Surgical History: Yes Surgery Procedure, Year, and Place: Left wrist surgery,Right elbow surgery, 2 Thyroidectomies, B/L carpal tunnel surgery,L knee ligament repair 1988. - Family History Known Family History: Positive: Cardiac Disease, Hypertension, Diabetes - Social History Alcohol Use: Weekly Alcohol Amount: 1 Substance Use Type: None Smoking Status (MU): Heavy Every Day Tobacco Smoker Type: Cigarettes Amount Used/How Often: 1 PPD Length of Time of Smoking/Using Tobacco: 25 YRS Have You Smoked in the Last Year: Yes Household Exposure Type: Cigarettes - Immunization History Most Recent Influenza Vaccination: no Most Recent Tetanus Shot: unk Most Recent Pneumonia Vaccination: within last 10 years Hx Tetanus, Diphtheria Vaccination: Yes Vaccination Up to Date: Yes Review of Systems All Other Systems Reviewed And Are Negative: Yes Physical Exam - Summary Physical Exam Summary: She is nontoxic in appearance with stable vital signs. Triage Information Reviewed: Yes Appearance: Well-Appearing Vital Signs: Initial Vital Signs Temp 96.7 F 08/31/19 11:04 Pulse 83 08/31/19 11:04 Resp 18 09/30/19 11:04 BP 127/76 08/31/19 11:04 Pulse Ox 95 08/31/19 11:04 Vital Signs Reviewed: Yes Cardiovascular: Positive: Pulses Normal, Brisk Capillary Refill Musculoskeletal: Positive: Strength Intact, ROM Intact, No Edema Neurological Exam: Normal - Light touch versus pinprick and 2 point discrimination are both intact on the volar and dorsal surface of her thumb. She works with her hands and she is quite calloused which is affecting it I think. Diagnostics - Radiology Right Wrist Radiology Interpretation Completed By: Radiologist Summary of Radiographic Findings: No acute process Hand/Wrist Course/Dx - Course Course Of Treatment: I think she has paresthesias from the blow right over her radial nerve. I recommended splinting and ibuprofen with with orthopedic follow-up. This should improve on its own in the next couple of days I would expect. - Differential Dx/Diagnosis Provider Diagnosis: Paresthesia of thumb of right hand Discharge ED - Sign-Out/Discharge Documenting (check all that apply): Patient Departure All imaging exams completed and their final reports reviewed: Yes - Discharge Plan Condition: Stable Disposition: HOME Patient Education Materials: Radial Nerve Palsy (ED) Referrals: Mino Lyon MD [Primary Care Provider] - Gerardo Schmidt MD [Medical Doctor] - - Billing Disposition and Condition Condition: STABLE Disposition: Home
== END 2019-08-31 13:00 | disposition home or self-care (01) ==
LOC: UCEAST 10:57
DX: R20.2 Paresthesia of skin (principal); F17.210 Nicotine dependence, cigarettes, uncomplicated; Z88.0 Allergy status to penicillin; Z88.1 Allergy status to other antibiotic agents; Z88.2 Allergy status to sulfonamides
CPT/HCPCS: 99212; G0463

== ENCOUNTER 2019-10-18 23:53 | Emergency (ER) | payer OTHER ==
--- OUTSIDE RECORDS SUMMARY | 2019-10-19 00:02 | XMS REPORT | Summary of Care ---
:1970 Author Organization [facility] Address [address] [place] [address] Care Team Providers Name Role Phone Sonali Mino Jones Primary Care Provider Reason for Visit Reason Comments Diabetes Follow up. Glucose was 47 on 08/28/2019 but patient states she missed her snack. Last A1C was 10.4. Encounter Details Date Type Department Care Team Description 09/02/2019 Office Visit [facility] Mino Lyon, Uncontrolled type 2 diabetes mellitus without complication ([facility]) (Primary Dx); Medicine MD Diabetic hypoglycemia (HCC); [address] [facility] [facility] BMI 40.0-44.9, adult ([facility]) [place] [address] [place] [address] [phone] Allergies Active Allergy Reactions Severity Noted Date Comments Moxatag Hives 03/27/2012 Doxycycline Dermatologic Reaction 01/08/2019 Levaquin Rash 03/27/2012 Sulfa Antibiotics Hives 03/27/2012 Patient is allergic to ALL SULFA documented as of this encounter (statuses as of 09/02/2019) Medications Medication Sig Dispensed Refills Start Date [...] X 8 MM Does not apply DAILY. Misc VENTOLIN HFA 108 (90 Take 2 Puffs by 54 Each 6 Active Base) MCG/ACT Inhalation inhalation EVERY 019 Aero SolnIndications: FOUR HOURS Tobacco use disorder NEEDED (asthma). azithromycin (ZITHROMAX) Take 2 pills on 6 Tab 0 Active 250 MG Oral Tab the first day and 019 1 pill each day for 4 days GLARGINE insulin, Inject 33 Units 5 Each Active LONG-Acting, (LANTUS) beneath the skin 019 100 UNIT/ML Subcutaneous EVERY BEDTIME. Solution GLARGINE insulin, Inject 28 Units 5 Each Discontinued (Dose LONG-Acting, (LANTUS) beneath the skin 019 019 Adjustment) 100 UNIT/ML Subcutaneous EVERY BEDTIME. Solution documented as of this encounter (statuses as of 09/02/2019) Active Problems Problem Noted Date BMI 40.0-44.9, adult 08/28/2019 Moderate persistent asthma without complication 08/28/2019 Uncontrolled type 2 diabetes mellitus without complication 08/28/2019 Uncontrolled type 2 diabetes mellitus without complication, with long-term current use of insulin Hypertension Tobacco use disorder Chronic midline low back pain without sciatica Overview: Dr. Juan munson Hypothyroidism Overview: post-thyroidectomy for lymphocytic thyroiditis documented as of this encounter (statuses as of 09/02/2019) Resolved Problems Problem Noted Date Resolved Date Chronic pain syndrome 03/27/2012 documented as of this encounter (statuses as of 09/02/2019) Immunizations Name Administration Dates Next Due Influenza [...] Sign Reading Time Taken Comments Blood Pressure 128/70 09/02/2019 3:34 PM EDT Pulse 74 09/02/2019 3:34 PM EDT Temperature - - Respiratory Rate - - Oxygen Saturation - - Inhaled Oxygen Concentration - - Weight 112 kg (247 lb) 09/02/2019 3:34 PM EDT Height 165.1 cm (5' 5") 09/02/2019 3:34 PM EDT Body Mass Index 41.1 09/02/2019 3:34 PM EDT documented in this encounter Patient Instructions Patient InstructionsMino Lyon MD - 09/02/2019 3:20 PM EDTFinger stick in am before meal the goal is 120 or less Afternoon snack is good idea No need to do finger stick presupper Check finger stick 1-2 hours after supper Continue mealtime insulin and metformin twice daily Follow up diabetes mellitus Kassie Chou [employer]M INSPECT[employer] or me one or so bring in your finger stick machine documented in this encounter Progress Notes Mino Lyon MD - 09/02/2019 3:20 PM EDT PATIENT: Karen Ivey : 1970 DATE OF SERVICE: 09/02/2019 CHIEF COMPLAINT: Chief Complaint Patient presents with Diabetes Follow up. Glucose was 47 on 08/28/2019 but patient states she missed her snack. Last A1C was 10.4. Subjective HISTORY OF PRESENT ILLNESS: Karen Ivey is a 48-y.o. female. HPI Here for follow up to blood work fasting plasma glucose was 47 she had draw later afternoon and eatslunch 11 am she usually takes snack 3 pm afternoon to prevent hypoglycemia the day of blood draw shedid not eat snack she has good hypoglycemia awareness She only checks finger stick presupper and it runs 120-150 range no post prandial or am premeal finger stick she works 7-3 She eats three times daily She can feel high glucose levels after meals No diabetes mellitus related symptoms Lab Results Component Value Date GLYCO 10.4 (H) 08/28/2019 GLYCOHEMOGLO 10.0 (A) 02/05/2018 she is on low carbohydrate diet and compliant with lantus 28 units at bedtime and rapid acting premeal insulin 18 units at each meal Patient Active Problem List Diagnosis Uncontrolled type 2 diabetes mellitus without complication, with long- term current use of insulin (HCC) Hypertension Tobacco use disorder Chronic midline low back pain without sciatica Hypothyroidism BMI 40.0-44.9, adult ([facility]) Moderate persistent asthma without complication Uncontrolled type 2 diabetes mellitus without complication (HCC) Family History Problem Relation Age of Onset [...] LONG-Acting, (LANTUS) 100 UNIT/ML Subcutaneous Solution Inject 33 Units beneath the skin EVERY BEDTIME. Glucose [...] file Gets together: Not on file Attends yarsani service: Not on file Active member of [...] History Narrative Lives with mother. 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 Over the last 2 weeks, have you been feeling down, depressed, anxious, or hopeless?: 0 Over the past 2 weeks, have you felt little interest or pleasure in doing things ?: 0 ROS no neuropathy Symptoms no cardiovascular symptoms Objective PHYSICAL EXAM: VITALS: BP 128/70 | Pulse 74 | Ht 5' 5" (1.651 m) | Wt 247 lb (112 kg) | BMI 41.10 kg/m Body mass index is 41.1 kg/m. Physical Exam Left foot diabetic exam: Visual exam. Foot [...] at either the foot or ankle: yes I spent 25 minutes with the patient, greater than half of this in direct face to face counseling addressing the current condition and the plan of care. ASSESSMENT / IMPRESSION: ICD-9-CM ICD-10-CM 1. Uncontrolled type 2 diabetes mellitus without complication (HCC) increase lantus 33 units at bedtime move finger stick to qam with goal <120 check post meal supper finger stick goal <180 stop pm premeal finger stick continue meal time insulin doses 250.02 E11.65 2. Diabetic hypoglycemia (HCC) 250.80 E11.649 3. BMI 40.0-44.9, adult (HCC) V85.41 Z68.41 Patient Instructions Finger stick in am before meal the goal is 120 or less Afternoon snack is good idea No need to do finger stick presupper Check finger stick 1-2 hours after supper Continue mealtime insulin and metformin twice daily Follow up diabetes mellitus Kassie Chou [employer]EL FILM INSPECT[employer] or me one or so bring in your finger stick machine Mino Lyon MD 09/02/2019 15:52 documented in this encounter Plan of Treatment Date Type Specialty Care Team Description 12/03/2019 Office Visit Internal Medicine Mino Lyon MD [address] [place] [address] [phone] Health Maintenance Due Date Last Done Comments Diabetic Eye Exam 1970 MAMMOGRAM (SCREENING) 09/11/2017 09/11/2016, 09/11/2016 COLONOSCOPY SCREENING 2018 ZOSTER IMMUNIZATION SERIES 2018 (1 of 2) FOOT EXAM 02/05/2019 02/05/2018, 02/05/2018, 02/05/2018, Additional history exists INFLUENZA VACCINE (#1) 2019 09/11/2016, 10/21/2012 PAP SMEAR 09/11/2019 09/11/2016, 09/11/2016, 09/11/2016 HEMOGLOBIN A1C 11/27/2019 08/28/2019, 05/14/2019, 02/10/2019, Additional history exists DEPRESSION SCREENING 08/28/2020 08/28/2019 LIPID DISORDER SCREENING 08/28/2020 08/28/2019, 02/10/2019, 09/23/2018, Additional history exists PNEUMOCOCCAL 0-64 YRS Completed 06/27/2012 HPV IMMUNIZATION SERIES Aged Out No longer eligible based on patient's age to complete this topic MENINGOCOCCAL VACCINE IMM Aged Out No longer eligible based on patient's age to complete this topic documented as of this encounter Goals Goal Patient Goal Associated Recent Patient-Stated? Author Type Problems Progress Blood Pressure Blood Pressure 128/70 No Effie, < 140/90 (09/02/2019 HAI Sow 3:34 PM EDT) Note: This is an individualized [...] score < 5 Depression No Estrellita Whitney , REYNALDO Note: This is an individualized treatment (depression) goal for Karen Ivey: Displayed above is your goal for a depression screening (PHQ-9) score that would indicate good control of your depression. Glycohemoglobin A1c < 7.0 Diabetes 10.4 (08/28/2019 3:22 No Magi Chou FNP PM EDT) Note: This is an individualized treatment (diabetes control, HgbA1C) goal for Karen Ivey: Displayed above is your progress towards your HgbA1C goal. Your goal is shown above (on the left); your most recent HgbA1C is shown on the right. Note that lower numbers are better. Weight loss vs. 18 mo Lifestyle 5 (09/02/2019 3:34 PM Magi Gamboa FNP max (lbs) >= 10 EDT) Note: [...] diabetes mellitus without complication (HCC) - Primary Diabetic hypoglycemia (HCC) Type II or unspecified type diabetes mellitus with other specified manifestations, not stated as uncontrolled BMI 40.0-44.9, adult (HCC) Body Mass Index 40.0-44.9, adult documented in this encounter Insurance Payer Benefit Plan / Subscriber ID Effective Dates Phone Address Type Group [employer]FFRIES xxxxxxxxxx 2011-Present [employer] documented as of this encounter
--- OUTSIDE RECORDS SUMMARY | 2019-10-19 00:02 | XMS REPORT | Continuity of Care Document ---
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 Medicine Problems Description No Information Available Social History Type Date Description Comments Sex Unknown Tobacco Use Start: Unknown Patient is a current smoker, smokes every day Smoking Status Reviewed: 09/03/19 Patient is a current smoker, smokes every day Allergies, Adverse Reactions, Alerts Active Allergies Reaction Severity Comments Date Amoxicillin 09/03/2019 Sulfa 09/03/2019 Doxycycline 09/03/2019 Medications Active Medications SIG Qnty Indications Ordering Provider Date Oxymorphone HCL Take One Tablet Unknown 5mg Tablets By Mouth Every 6 To 8 Hours as Directed Maximum Daily Dose 4 Tablets Ventolin HFA Inhale 2 Puffs By Unknown 108(90Base) Mouth Every 4 mcg/Act Aerosol Hours as Needed as Directed Celecoxib Take One Capsule Unknown 200mg Capsules By Mouth Every Day as Directed Metformin HCL Take 2 Tablets By Unknown 1000mg Mouth Once Daily Tablets AT Bedtime Lisinopril Take 1 Tablet By Unknown 10mg Tablets Mouth Once Daily Levothyroxine Sodium Take 1 Tablet By Unknown 200mcg Mouth Once Daily Tablets AT Bedtime And On Weekends Take One And One Half Tablets Escitalopram Oxalate Take 1 Tablet By Unknown 10mg Mouth Once Daily Tablets Carisoprodol Take One Tablet Unknown 350mg Tablets By Mouth Every 8 Hours as Directed Maximum Daily Dose 3 Tablets Atorvastatin Calcium Take 1 Tablet By Unknown 20mg Mouth Once Daily Tablets Lantus Solostar Inject 28 Units Unknown 100Unit/ML Beneath The Skin Solution Pen-Inject Every Day AT Bedtime Humalog Kwikpen Inject 18 Units Unknown 100Unit/ML Beneath The Skin Solution Pen-Inject 3 Times A Day Before Meals Immunizations Description No Information Available Vital Signs Date Vital Result Comment 09/03/2019 11:06am Height 65 inches 5'5" Weight 241.00 lb Heart Rate 61 /min BP Systolic 110 mmHg BP Diastolic 74 mmHg Body Temperature 96.9 F Pain Level 7 BMI (Body Mass Index) 40.1 kg/m2 Results Description No Information Available Procedures Description No Information Available Medical Devices Description No Information Available Encounters Description No Information Available Assessments Date Code Description Provider 09/03/2019 S60.211A Contusion of right wrist, initial encounter KAUSHIK Barriga Plan of Treatment Future Appointment(s):09/17/2019 11:30 am - Tonia Aggarwal M.D. at [facility]/03/2019 - Astrid Louise RPA-CS60.211A Contusion of right wrist, initial encounterFollow up:Follow up: 2 weeeks Functional Status Description No Information Available Mental Status Description No Information Available Referrals Description No Information Available
--- OUTSIDE RECORDS SUMMARY | 2019-10-19 00:02 | XMS REPORT | Continuity of Care Document ---
:1970 External Reference #:[id number] Author Name Tonia Aggarwal M.D. 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[employer] [employer] Medicine Problems Description No Information Available Social History Type Date Description Comments Sex Unknown Tobacco Use Start: Unknown Patient is a current smoker, smokes every day Smoking Status Reviewed: 10/14/19 Patient is a current smoker, smokes every [...] Available Vital Signs Date Vital Result Comment 10/14/2019 11:36am Height 65 inches 5'5" Weight 245.00 lb Heart Rate 75 /min Body Temperature 97.6 F O2 % BldC Oximetry 92 % BMI (Body Mass Index) 40.8 kg/m2 09/17/2019 11:34am Height 65 inches 5'5" Heart Rate 80 /min BP Systolic 110 mmHg BP Diastolic 68 mmHg Respiratory Rate 18 /min Body Temperature 98.0 F Pain Level 7 Results Description No Information Available Procedures Description No Information Available Medical Devices Description No Information Available Encounters Type Date Location Provider Dx Diagnosis Office Visit 09/17/2019 [facility] Tonia Aggarwal, S60.211D Contusion of 11:30a at [facility].D. right wrist, subsequent encounter S60.211A Contusion of right wrist, initial encounter G56.01 Carpal tunnel syndrome, right upper limb G56.01 Carpal tunnel syndrome, right upper limb Office Visit 09/03/2019 10:00a [facility]end[facility] S60.211A Contusion of Orthopedics at [facility] right wrist, [place] initial encounter Assessments Date Code Description Provider 10/14/2019 S60.211D Contusion of right wrist, subsequent Tonia Aggarwal M.D. encounter 10/14/2019 G56.01 Carpal tunnel syndrome, right upper limb Tonia Aggarwal M.D. 10/14/2019 G56.01 Carpal tunnel syndrome, right upper limb Tonia Aggarwal M.D. 09/17/2019 S60.211D Contusion of right wrist, subsequent Tonia Aggarwal M.D. encounter 09/17/2019 S60.211A Contusion of right wrist, initial encounter Tonia Aggarwal M.D. 09/17/2019 G56.01 Carpal tunnel syndrome, right upper limb Tonia Aggarwal M.D. 09/17/2019 G56.01 Carpal tunnel syndrome, right upper limb Tonia Aggarwal M.D. 09/03/2019 S60.211A Contusion of right wrist, initial encounter Astrid Louise, JAMIE-C Plan of Treatment 10/14/2019 - Tonia Aggarwal M.D.S60.211D Contusion of right wrist, subsequent xngyaiaqcD75.01 Carpal tunnel syndrome, right upper limbNew Orders:EMG w/Nerve Conduct Study, Upper, Ordered: 10/14/19Follow up:Follow up: after testing is completed Functional Status Description No Information Available Mental Status Description No Information Available Referrals Description No Information Available
--- OUTSIDE RECORDS SUMMARY | 2019-10-19 00:02 | XMS REPORT | Continuity of Care Document ---
:1970 External Reference #:[id number] Author Name Tonia Aggarwal M.D. 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 Medicine Problems Description No Information Available Social History Type Date Description Comments Sex Unknown Tobacco Use Start: Unknown Patient is a current smoker, smokes every day Smoking Status Reviewed: 09/17/19 Patient is a current smoker, smokes every [...] Available Vital Signs Date Vital Result Comment 09/17/2019 11:34am Height 65 inches 5'5" Heart Rate 80 /min BP Systolic 110 mmHg BP Diastolic 68 mmHg Respiratory Rate 18 /min Body Temperature 98.0 F Pain Level 7 09/03/2019 11:06am Height 65 inches 5'5" Weight 241.00 lb Heart Rate 61 /min BP Systolic 110 mmHg BP Diastolic 74 mmHg Body Temperature 96.9 F Pain Level 7 BMI (Body Mass Index) 40.1 kg/m2 Results Description No Information Available Procedures Description No Information Available Medical Devices Description No Information Available Encounters Description No Information Available Assessments Date Code Description Provider 09/17/2019 S60.211A Contusion of right wrist, initial encounter Tonia Aggarwal M.D. 09/17/2019 G56.01 Carpal tunnel syndrome, right upper limb Tonia Aggarwal M.D. 09/03/2019 S60.211A Contusion of right wrist, initial encounter KAUSHIK Barriga Plan of Treatment Future Appointment(s):10/14/2019 11:30 am - Tonia Aggarwal M.D. at [facility] at Hqctrf9409/17/2019 - Tonia Aggarwal M.D.S60.211A Contusion of right wrist, initial encounterNew Therapy:Physical TherapyFollow up:Follow up: 4 gffvaM85.01 Carpal tunnel syndrome, right upper limbNew Therapy:Physical Therapy Functional Status Description No Information Available Mental Status Description No Information Available Referrals Description No Information Available
--- OUTSIDE RECORDS SUMMARY | 2019-10-19 00:02 | XMS REPORT | Continuity of Care Document ---
:1970 External Reference #:[id number] Author Name Skyler Martinez DO MPH Address [address] [place] [address] [address] [place] [address] Care Team Providers Name Role Phone Mino Lyon M.D. 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00 lb Pain Level 6 Pain at this time. Pain Level With Medicine 6 on average with meds Pain Level Without Medicine 9 without meds BMI (Body Mass Index) 38.9 kg/m2 08/18/2019 3:33pm BP Systolic 142 mmHg BP [...] Available Procedures Date Code Description Status 07/20/2019 53073 Omt 1-2 Body Regions Completed 06/23/2019 93567 Omt 1-2 Body Regions Completed 05/25/2019 06676 Omt 1-2 Body Regions Completed 04/23/2019 71134 Omt 1-2 Body Regions Completed 03/26/2019 28237 Omt 1-2 Body Regions Completed Medical Devices Description No Information Available Encounters Type Date Location Provider Dx Diagnosis Office Visit 08/18/2019 Main Office as Of Skyler Martinez DO, G89.21 Chronic pain due 3:30p 01/02/14 MPH to trauma M54.5 Low back pain Z79.891 halfway (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 analgesic 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 Office Visit 07/20/2019 3:15p Main Office as Skyler Martinez G89.21 Chronic pain due Of 01/02/14 DO, MPH to trauma M54.2 Cervicalgia M99.01 Segmental and somatic dysfunction of cervical region 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 Office Visit 06/23/2019 3:00p Main Office as Skyler Martinez G89.21 Chronic pain due Of 01/02/14 DO, MPH to trauma M54.2 Cervicalgia M99.01 Segmental and somatic dysfunction of cervical region 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 Office Visit 05/25/2019 2:45p Main Office as Skyler Martinez G89.21 Chronic pain due Of 01/02/14 DO, MPH to trauma M54.2 Cervicalgia M99.01 Segmental and somatic dysfunction of cervical region Z79.891 halfway (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 analgesic Z79.891 halfway (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 analgesic Office Visit 04/23/2019 2:45p Main Office as Skyler Martinez G89.21 Chronic pain due Of 01/02/14 DO, MPH to trauma M54.2 Cervicalgia M99.01 Segmental and somatic dysfunction of cervical region 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 Z79.891 halfway (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 analgesic Office Visit 03/26/2019 3:30p Main Office as Skyler Martinez G89.21 Chronic pain due Of 01/02/14 DO, MPH to trauma M54.2 Cervicalgia M99.01 Segmental and somatic dysfunction of cervical region M54.5 Low back pain Z79.891 halfway (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 analgesic 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 Assessments Date Code Description Provider 09/22/2019 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 Skyler Martinez DO, MPH 09/22/2019 M54.5 Low back pain Skyler Martinez DO MPH 09/22/2019 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 Skyler Martinez DO, MPH 09/22/2019 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 Martinez, Skyler , DO, MPH 08/18/2019 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 Martinez, Skyler, DO, MPH 08/18/2019 M54.5 Low back pain Martinez, Skyler, DO, MPH 08/18/2019 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 Martinez, Skyler , DO, MPH 08/18/2019 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 Martinez, Skyler , DO, MPH 07/20/2019 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 Martinez, Skyler, DO, MPH 07/20/2019 M54.2 Cervicalgia Martinez, Skyler, DO, MPH 07/20/2019 M99.01 Segmental and somatic dysfunction of Martinez, Skyler, DO, MPH cervical region 07/20/2019 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 Martinez, Skyler , DO, MPH 07/20/2019 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 Martinez, Skyler , DO, MPH 06/23/2019 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 Martinez, Skyler, DO, MPH 06/23/2019 M54.2 Cervicalgia Martinez, Skyler, DO, MPH 06/23/2019 M99.01 Segmental and somatic dysfunction of Martinez, Skyler, DO, MPH cervical region 06/23/2019 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 Martinez, Skyler , DO, MPH 06/23/2019 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 Martinez, Skyler , DO, MPH 05/25/2019 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 Martinez, Skyler, DO, MPH 05/25/2019 M54.2 Cervicalgia Martinez, Skyler, DO, MPH 05/25/2019 M99.01 Segmental and somatic dysfunction of Martinez, Skyler, DO, MPH cervical region 05/25/2019 Z79.891 halfway (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 analgesic Martinez, Skyler , DO, MPH 05/25/2019 Z79.891 halfway (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 analgesic Martinez, Skyler , DO, MPH 04/23/2019 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 Skyler Martinez DO MPH 04/23/2019 M54.2 Cervicalgia Skyler Martinez DO, MPH 04/23/2019 M99.01 Segmental and somatic dysfunction of Skyler Martinez DO, MPH cervical region 04/23/2019 Z79.891 halfway (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 analgesic Skyler Martinez DO MPH 04/23/2019 Z79.891 halfway (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 analgesic Skyler Martinez DO, MPH 03/26/2019 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 Skyler Martinez DO MPH 03/26/2019 M54.2 Cervicalgia Skyler Martinez DO, MPH 03/26/2019 M99.01 Segmental and somatic dysfunction of Skyler Martinez DO, MPH cervical region 03/26/2019 M54.5 Low back pain Skyler Martinez DO MPH 03/26/2019 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 Symptoms and complaints discussed and reviewed today. No significant changes in physical findings. Continue current medical pain management.M54.5 Low back painComments:Chronic. Symptoms and complaints discussed and reviewed today.No changes in physical findings. Patient is stable and comfortable when current medical therapy is rendered.Z79.891 local intermodal truck driver ( 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 analgesicNew Labs:Urine [...] AM, AMPH, JABARI, C[place], BUP, CARIS, COCM, ETG, FENT, MCSHSG, OPI, OXY, PCP, TAPEN, [...] and ongoing re-assessment of opioid therapy. Per [facility] Workers' Compensation Board, [place] Non- Acute Pain Medical Treatment Guidelines, section F.3.d.i. This test is to be used in conjunction with other clinical information when decisions are to be made to continue, adjust or discontinue treatment. This information includes clinical observation, results of addiction screening, pill counts, and prescription drug monitoring reports. Preliminary UDT screen results are not final and should not be used to determine patient care or plan of treatment. [...] while maintaining satisfactory side effect profile andminimizing fdc end-organ damage. Importance of regular nutrition throughout the day discussed.Activity as toleratedContinue with PCP Functional Status Description No Information Available Mental Status Description No Information Available Referrals Description No Information Available
--- NOTE | 2019-10-19 00:20 | ED ---
Upper Extremity Pain - HPI Summary HPI Summary: Patient complains of right wrist pain status post mechanical fall tonight. Denies any other pain, injury or symptoms. - History of Current Complaint Chief Complaint: EDExtremityUpper Stated Complaint: FALL/WRIST INJURY PER PT Time Seen by Provider: 10/19/19 00:19 Hx Obtained From: Patient Hx Last Menstrual Period: 07/27/19 Mechanism Of Injury: Fall From A Standing Position Onset/Duration: Started Hours Ago Timing: Constant Severity Initially: Moderate Severity Currently: Moderate Pain Location: Wrist Character: Dull, Aching, Throbbing Aggravating Factor(s): Movement Alleviating Factor(s): Rest Associated Signs & Symptoms: Positive: Negative - Allergies/Home Medications Allergies/Adverse Reactions: Allergies Allergy/AdvReac Type Severity Reaction Status Date / Time amoxicillin Allergy Hives Verified 10/18/19 23:55 doxycycline Allergy Hives Verified 10/18/19 23:55 levofloxacin Allergy Rash Verified 10/18/19 23:55 Sulfa (Sulfonamide Allergy Hives Verified 10/18/19 23:55 Antibiotics) sulfamethoxazole Allergy Hives Verified 10/18/19 23:55 [From Bactrim] trimethoprim [From Bactrim] Allergy Hives Verified 10/18/19 23:55 Home Medications: Home Medications Atorvastatin* [Lipitor*] 20 mg PO 1700 10/19/19 [History Confirmed 10/19/19] Escitalopram * [Lexapro 10 mg (NF)] 10 mg PO BEDTIME 10/19/19 [History Confirmed 10/19/19] Lisinopril 10 mg PO BEDTIME 10/19/19 [History Confirmed 10/19/19] PMH/Surg Hx/FS Hx/Imm Hx Endocrine/Hematology History: Reports: Hx Diabetes - type 2 with insulin tx, Hx Thyroid Disease Cardiovascular History: Reports: Hx Hypertension, Other Cardiovascular Problems/ Disorders - IDDM/ DKA Respiratory History: Reports: Hx Asthma, Hx Chronic Obstructive Pulmonary Disease (COPD) History: Denies: Hx Dialysis Sensory History: Denies: Hx Eye Injury, Hx Eye Prosthesis Opthamlomology History: Denies: Hx Legally Blind EENT History: Denies: Hx Deafness Neurological History: Denies: Hx Dementia - Surgical History Surgery Procedure, Year, and Place: Left wrist surgery,Right elbow surgery, 2 Thyroidectomies, B/L carpal tunnel surgery,L knee ligament repair 1988. Infectious Disease History: No Infectious Disease History: Denies: Traveled Outside the [place] in Last 30 Days - Family History Known Family History: Positive: Cardiac Disease, Hypertension, Diabetes - Social History Alcohol Use: Weekly Alcohol Amount: 1 Substance Use Type: Reports: None Hx Tobacco Use: Yes Smoking Status (MU): Heavy Every Day Tobacco Smoker Type: Cigarettes Amount Used/How Often: 1 PPD Length of Time of Smoking/Using Tobacco: 25 YRS Have You Smoked in the Last Year: Yes Review of Systems Constitutional: Negative Eyes: Negative ENT: Negative Cardiovascular: Negative Respiratory: Negative Gastrointestinal: Negative Genitourinary: Negative Musculoskeletal: Other Skin: Negative Neurological: Negative Psychological: Normal All Other Systems Reviewed And Are Negative: Yes Physical Exam - Summary Physical Exam Summary: No swelling, ecchymosis, erythema, deformity noted to right wrist. PMS intact distally. No pain with flexion or extension of right elbow right shoulder. Positive snuffbox tenderness. Triage Information Reviewed: Yes Vital Signs On Initial Exam: Initial Vitals Temp Pulse Resp BP Pulse Ox 97.4 F 66 15 134/87 95 10/18/19 23:54 10/18/19 23:54 10/18/19 23:54 10/18/19 23:54 10/18/19 23:54 Vital Signs Reviewed: Yes Appearance: Positive: Well-Appearing Skin: Positive: Warm Head/Face: Positive: Normal Head/Face Inspection Eyes: Positive: Normal Neck: Positive: Supple Respiratory/Lung Sounds: Positive: Clear to Auscultation Cardiovascular: Positive: Normal Abdomen Description: Positive: Nontender Musculoskeletal: Positive: Normal Neurological: Positive: Normal Psychiatric: Positive: Normal AVPU Assessment: Alert - Mirian Coma Scale Best Eye Response: 4 - Spontaneous Best Motor Response: 6 - Obeys Commands Best Verbal Response: 5 - Oriented Coma Scale Total: 15 Procedures - Sedation Patient Received Moderate/Deep Sedation with Procedure: No Diagnostics - Vital Signs Vital Signs Temp Pulse Resp BP Pulse Ox 10/18/19 23:54 97.4 F 66 15 134/87 95 - Laboratory Lab Statement: Any lab studies that have been ordered have been reviewed, and results considered in the medical decision making process. Course/Dx - Course Course Of Treatment: Patient complains of right wrist pain status post mechanical fall tonight. Denies any other pain, injury or symptoms. Vital signs within normal limits. X-ray reviewed by landonelf and attending Dr. Johnson, possible distal radius fracture. Radiology read pending tomorrow. Patient had positive snuffbox tenderness, placed in Velcro thumb spica splint. Advised to follow-up with ortho and also to get repeat x-ray in 2 weeks. Patient is followed by orthopedics Dr. Aggarwal. - Diagnoses Provider Diagnoses: Right wrist injury Discharge ED - Sign-Out/Discharge Documenting (check all that apply): Patient Departure - Discharge Plan Condition: Stable Disposition: HOME Patient Education Materials: Wrist Fracture in Adults (ED), Scaphoid Fracture ( ED) Referrals: Mino Lyon MD [Primary Care Provider] - Tonia Aggarwal MD [Medical Doctor] - Additional Instructions: Take ibuprofen 600 mg every 6 hours. Ice for 15 minutes at a time. Wear brace until evaluated by orthopedics. Follow-up with orthopedics Dr. Aggarwal for further evaluation. Repeat x-ray in 2 weeks. - Billing Disposition and Condition Condition: STABLE Disposition: Home
[2019-10-19] MEDS ORDERED: Ibuprofen TAB* 600 MG PO ONE (00:58)
[2019-10-19 01:09] VITALS: BP 122/89
== END 2019-10-19 01:07 | disposition home or self-care (01) ==
LOC: ED 23:53
DX: S69.91XA Unspecified injury of right wrist, hand and finger(s), initial encounter (principal); W19.XXXA Unspecified fall, initial encounter; Y92.9 Unspecified place or not applicable; E11.9 Type 2 diabetes mellitus without complications; Z79.4 Long term (current) use of insulin; E03.9 Hypothyroidism, unspecified; I10 Essential (primary) hypertension; Z79.899 Other long term (current) drug therapy; J44.9 Chronic obstructive pulmonary disease, unspecified; F17.210 Nicotine dependence, cigarettes, uncomplicated; Z88.2 Allergy status to sulfonamides; Z88.0 Allergy status to penicillin
CPT/HCPCS: 99282

== ENCOUNTER 2020-01-26 08:14 | Day surgery (SDC) | payer OTHER ==
--- NOTE | 2020-01-21 17:32 | HP ---
PREOPERATIVE HISTORY AND PHYSICAL: DATE OF ADMISSION/SURGERY: 01/26/[address] [facility] ATTENDING SURGEON: Tonia Esposito MD * (DICTATED BY BENJI BERNAL) PROCEDURE: Right wrist de Quervain's release, carpal tunnel release. HISTORY OF PRESENT ILLNESS: This is a 49-year-old female who has had ongoing problems with her right wrist since a work-related injury on 08/04/19. She fell in the parking lot at that time. Since then, she has had symptoms of carpal tunnel syndrome and EMG/nerve conduction study confirmed the presence of right carpal tunnel syndrome. She has also had pain on the radial aspect of her wrist and has been diagnosed with radial styloid tenosynovitis. She has consented to proceed with surgical intervention for both of these problems. She is a pain management patient and is seen for chronic low back pain by Dr. Martinez. He prescribes oxymorphone, which she takes regularly. The patient had originally been scheduled for surgery earlier this month, but morning of surgery , her glucose level was too elevated and therefore surgery was canceled. She reports that generally her glucose level is much better controlled as long as she is taking her medications regularly. PAST MEDICAL HISTORY: 1. Diabetes. 2. Hypercholesterolemia. 3. Hypothyroidism. 4. Asthma. 5. History of ketoacidosis. 6. Anxiety/depression. PAST SURGICAL HISTORY: 1. Right carpal tunnel release 20 years ago. 2. Left carpal tunnel release and left de Quervain's release. 3. Left knee meniscal surgery. 4. Thyroidectomy. 5. Left elbow surgery. CURRENT MEDICATIONS: 1. Amlodipine besylate 5 mg daily. 2. Atorvastatin calcium 20 mg daily. 3. Carisoprodol 350 mg q.8 hours. 4. Celebrex 200 mg daily. 5. Escitalopram oxalate 10 mg daily. 6. Humalog KwikPen inject 18 units 3 times a day before meals. 7. Lantus SoloSTAR inject 28 units every day at bedtime. 8. Levothyroxine sodium 200 mcg daily. 9. Lisinopril 10 mg daily. 10. Metformin 1000 mg 2 tabs daily. 11. Oxymorphone HCl 5 mg q.6 to 8 hours p.r.n. pain. 12. Ventolin inhaler 2 puffs q.4 hours p.r.n. ALLERGIES: AMOXICILLIN, DOXYCYCLINE, and SULFA DRUGS cause hives. FAMILY MEDICAL HISTORY: Noncontributory. 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 She is a current smoker and smokes a pack per day and has done so for the past 25 years. She denies recreational drug use. She drinks alcohol on occasion. REVIEW OF SYSTEMS: Negative for general, cephalic, cardiovascular, respiratory , GI, , other musculoskeletal, integumentary, endocrine, hematologic, and neurologic symptoms. Infectious Disease: Negative for MRSA, hepatitis C, HIV. PHYSICAL EXAMINATION GENERAL: A well-developed, well-nourished 49-year-old female, in no acute distress. VITAL SIGNS: Height 5 feet 5 inches, weight 195 pounds. Pulse rate 80, blood pressure 138/78. HEENT: Normocephalic, atraumatic. Pupils are equal, round, and reactive to light and accommodation. Extraocular movements are intact. Throat is clear. NECK: Supple. No palpable lymph nodes. PULMONARY: Lungs are clear to auscultation bilaterally. No wheezes, rales, or rhonchi. CARDIOVASCULAR: Regular rate and rhythm. S1, S2. No murmurs, rubs, or gallops. No edema. ABDOMEN: Positive bowel sounds. Soft, nontender. NEUROLOGICAL: Alert and oriented x3. Cranial nerves II through XII are intact. Sensation is intact to light touch. MUSCULOSKELETAL: On exam of her right wrist and hand, she has some mild atrophy of the thenar eminence and weakness with thumb abduction. She has a positive median nerve compression test at the wrist. She also has tenderness to palpation at the radial styloid along the first dorsal compartment. Positive Alexander's test. She has decreased sensation to light touch in the median nerve distribution in the right hand. DIAGNOSTIC STUDIES: EMG/nerve conduction study shows evidence of carpal tunnel syndrome on the right. X-rays of the right wrist were unremarkable for any acute injury. IMPRESSION: Right wrist de Quervain's tenosynovitis and carpal tunnel syndrome. PLAN: The patient is scheduled to undergo a right wrist de Quervain's release and carpal tunnel release with Dr. Esposito on 01/26/20. She will return to the office 10 days postop for followup and suture removal. She has pain medications as prescribed by Dr. Martinez that she will plan on using postoperatively for pain management. QUYNH BAUTISTA, BENJI [id number]/[facility] #: [id number] MARCIA
[~2020-01-26 08:14] MED LIST: Buffered Lidocaine 1% SYRIN* 1 ML/SYRINGE INTRADERM ONE; DiMENhydriNATE IV* 50 MG/ML VIAL IV PUSH ONE; DiMENhydriNATE IV* 50 MG/ML VIAL ONE; Famotidine IV* 10 MG/ML 2 ML (20 mg) IV ONE; Famotidine IV* 10 MG/ML 2 ML (20 mg) ONE; Lactated Ringers 1000 ML Bag* 1,000 ML IV SCH; Lidocaine 1% INJ* 10 MG/ML 30 ML SDV ONE
[2020-01-26] MEDS ORDERED: Insulin LISPRO* 1 UNITS UNIT SUBCUT ONE ×2 (10:29→10:31)
[2020-01-26] MEDS ORDERED: Dextrose 50% Syringe 50 ML* 25 GM/50 ML SYRINGE IV PUSH PRN (10:29)
[2020-01-26] MEDS ORDERED: Naloxone* 0.4 MG/ML 1 ML VIAL IV PRN (10:30)
[2020-01-26] MEDS ORDERED: HYDROcodone/ACETAMIN 5-325 MG* 1 TAB PO PRN (10:30)
[2020-01-26] MEDS ORDERED: oxyCODONE/Acetamin 5/325 MG* TAB PO PRN (10:30)
[2020-01-26] MEDS ORDERED: fentaNYL* 50 MCG/ML 2 ML VIAL (100 MCG VIAL) IV PRN (10:30)
[2020-01-26] MEDS ORDERED: Ondansetron INJ* 2 MG/ML VIAL IV PRN (10:30)
[2020-01-26] MEDS ORDERED: Ibuprofen TAB* 600 MG PO PRN (10:30)
[2020-01-26] MEDS ORDERED: Midazolam* 1 MG/ML 2 ML VIAL (2 MG) ONE (10:36)
[2020-01-26] MEDS ORDERED: fentaNYL* 50 MCG/ML 2 ML VIAL (100 MCG VIAL) ONE (10:36)
[2020-01-26] MEDS ORDERED: Propofol* 10 MG/ML 20 ML BTL ONE (10:36)
[2020-01-26] MEDS ORDERED: Lidocaine 2% PF * 5 ML VIAL ONE (10:37)
[2020-01-26 12:20] VITALS: BP 132/70
--- NOTE | 2020-01-27 00:20 | OP ---
DATE OF OPERATION: 01/26/20 - [facility] DATE OF : 66 SURGEON: Tonia Esposito MD RECORDS MANAGEMENT ASSOCIATE: BENJI Barriga ANESTHESIA: Local MAC. PRE-OP DIAGNOSES: 1. Right carpal tunnel syndrome. 2. Right de Quervain's tenosynovitis. POST-OP DIAGNOSES: 1. Right carpal tunnel syndrome. 2. Right de Quervain's tenosynovitis. OPERATIVE PROCEDURE: Right de Quervain's release and right carpal tunnel release. ESTIMATED BLOOD LOSS: Zero. TOURNIQUET TIME: About 15 minutes. INDICATIONS FOR PROCEDURE: Karen is a 49-year-old female who has painful tendinitis at the radial aspect of her right wrist as well as numbness and tingling in the median nerve distribution of her right hand. She presents for right carpal tunnel release and de Quervain's release. DESCRIPTION OF PROCEDURE: The patient was brought to the operating room, was given a sedation anesthetic and a local infiltration of 10 cc of 1% plain lidocaine in the palm of her right hand and additional 10 cc of 1% plain lidocaine at the radial styloid of the right wrist. The skin of her right upper extremity was prepped and draped in the usual sterile fashion. The upper extremity was exsanguinated and the tourniquet elevated to 250 mmHg. A longitudinal incision was made in the palm in line with the ring finger and we dissected through the subcutaneous tissue down to the transverse carpal ligament. The ligament was divided sharply with a knife and then more proximally with the scissors. The nerve was dissected free from the surrounding tissue. There was some adherence of the nerve to the distal aspect of the carpal tunnel and this was carefully dissected away so that the nerve was completely freed up. There was an area of moderate compression at the mid portion of the ligament. The wound was irrigated and the skin edges reapproximated with 4-0 nylon suture. Next, a longitudinal incision was made centered at the tip of the radial styloid and we dissected through the subcutaneous tissue down to the first dorsal compartment. Branches of the radial sensory nerve were located and then were retracted by the chemical laboratory assistant, Astrid Louise. The first dorsal compartment was incised longitudinally and the APL and EPB tendons were completely released from separate compartments. There was abundant tenosynovitis around the tendons and this was debrided. The wound was irrigated and the skin edges reapproximated with 4-0 nylon suture. The wound was dressed with Xeroform, 4x4, Webril, and an Quentin wrap. The patient tolerated the procedure well and was brought to the recovery room in good condition. [id number]/[facility] #: [id number] MARCIA
== END 2020-01-26 12:11 | disposition home or self-care (01) ==
LOC: OREAST 08:14
PROVIDERS: ATTEND Orthopaedic Surgery
DX: G56.01 Carpal tunnel syndrome, right upper limb (principal); M65.4 Radial styloid tenosynovitis [de Quervain]; E11.9 Type 2 diabetes mellitus without complications; Z79.84 Long term (current) use of oral hypoglycemic drugs; Z79.4 Long term (current) use of insulin; E78.00 Pure hypercholesterolemia, unspecified; E03.9 Hypothyroidism, unspecified; J45.909 Unspecified asthma, uncomplicated; F41.8 Other specified anxiety disorders
CPT/HCPCS: 81025; J1240; J1815; J2250; J2704; J3010

== ENCOUNTER 2023-07-01 10:51 | Observation (INO) ==
[2023-07-01] MEDS ORDERED: Morphine 4 MG/ML VIAL (1 ml) IV ONE (11:04)
[2023-07-01] MEDS ORDERED: Ondansetron 4 mg VIAL 2 MG/ML 2 ml VIAL IV ONE (11:04)
[2023-07-01] MEDS ORDERED: Lactated Ringers 1000 ml BAG 1,000 ML IV ONE (11:04)
[2023-07-01] MEDS ORDERED: HYDROmorphone 1 MG/1 ML SYRINGE IV ONE (11:47)
[2023-07-01 11:50] LABS: ABS Basophils 0.1 10^3/uL (0.0-0.1); ABS Lymphocytes 0.9 10^3/uL (1.0-4.8); ABS Monocytes 0.3 10^3/uL (0.0-0.9); ABS Neutrophils 8.6 10^3/uL (1.5-7.6); ABS Nucleated RBC 0.02 10^3/ul; Eosinophil % 0.1 %; Hematocrit 45.5 % (35-45); Hemoglobin 15.6 g/dL (11.5-14.3); Lymphocyte % 9.2 %; Mean Corpuscular Hemoglobin 29.4 pg (27-33); Mean Corpuscular Hgb Conc 34.3 g/dL (31-36); Mean Corpuscular Volume 85.5 fL (80-97); Mean Platelet Volume 8.2 fL (7.5-11.2); Nucleated Red Blood Cells % 0.2 /100 WBC (0.0-0.4); Platelet Count 282 10^3/uL (150-450); Red Blood Count 5.32 10^6/uL (3.63-4.92); Red Cell Distribution Width 14.5 % (12-17); White Blood Count 9.8 10^3/uL (3.8-11.8)
[2023-07-01 12:09] LABS: Albumin 4.1 g/dL (3.2-5.2); Albumin/Globulin Ratio 1.6 (1-3); C Reactive Protein 1.13 mg/L (<8.01); Calcium 9.5 mg/dL (8.6-10.3); Creatinine, Serum 0.64 mg/dL (0.51-0.95); Globulin 2.6 g/dL (2-4); Magnesium 1.8 mg/dL (1.9-2.7); Potassium 4.6 mmol/L (3.5-5.0); Total Bilirubin 0.6 mg/dL (0.2-1.0); Total Protein 6.7 g/dL (6.4-8.9)
[2023-07-01] MEDS ORDERED: Iodixanol (CONTRAST) 320 MG/ML 100 ML SDV IV ONE (12:39)
[2023-07-01] MEDS ORDERED: Propofol 10 MG/ML 20 ML BTL ONE (14:51)
[2023-07-01] MEDS ORDERED: Lidocaine 2% PF 5 ML VIAL ONE (14:51)
[2023-07-01] MEDS ORDERED: Rocuronium 50 mg VIAL 10 mg/ml 5 ml VIAL (50 mg) ONE ×2 (14:51→16:22)
[2023-07-01] MEDS ORDERED: Midazolam 2 mg/2 ml VIAL 1 mg/ml 2 ml VIAL (2 mg) ONE (15:02)
[2023-07-01] MEDS ORDERED: Bupivacaine 0.25% SDV 30 ML ONE (15:10)
[2023-07-01] MEDS ORDERED: Clindamycin 900 MG/50 **NS BAG 900 MG/50 ML BAG ONE (15:55)
[2023-07-01] MEDS ORDERED: Dexmedetomidine 200 mcg/2 ml 2 ml VIAL (200 mcg) ONE (16:32)
[2023-07-01] MEDS ORDERED: Ondansetron 4 mg VIAL 2 MG/ML 2 ml VIAL ONE (16:32)
[2023-07-01] MEDS ORDERED: fentaNYL 100 mcg/2 ml 50 MCG/ML VIAL ONE ×2 (16:35→16:36)
[2023-07-01] MEDS ORDERED: Acetaminophen IV 1 GM/100ML 1,000 MG/100 ML BAG IV ONE (16:39)
[2023-07-01] MEDS ORDERED: Ondansetron 4 mg VIAL 2 MG/ML 2 ml VIAL IV PRN (17:58)
[2023-07-01] MEDS ORDERED: HYDROmorphone 0.5 MG/0.5 ML SYRINGE IV SLOW PU PRN (18:04)
[2023-07-01] MEDS ORDERED: Albuterol HFA INHALER 8 gm MDI INH PRN (18:05)
[2023-07-01] MEDS ORDERED: Dextrose 50% Syringe 50 ml 25 GM/50 ML SYRINGE IV PUSH PRN (18:07)
[2023-07-01] MEDS ORDERED: HYDROmorphone 1 MG/1 ML SYRINGE ONE (18:14)
[2023-07-01] MEDS ORDERED: Naloxone 0.4 mg VIAL 0.4 mg/ml 1 ml VIAL IV PRN (18:18)
[2023-07-01] MEDS: HYDROmorphone 1 MG/1 ML SYRINGE IV PRN ×5 (18:21→18:47)
[2023-07-01] MEDS: Acetaminophen IV 1 GM/100ML 1,000 MG/100 ML BAG IV SCH (21:38)
[2023-07-01] MEDS: Mometasone/Formoter 200/5 MDI INH SCH (21:43)
[2023-07-02] MEDS: Acetaminophen IV 1 GM/100ML 1,000 MG/100 ML BAG IV SCH ×2 (05:00→11:46)
[2023-07-02 07:54] LABS: ABS Basophils 0.1 10^3/uL (0.0-0.1); ABS Lymphocytes 1.4 10^3/uL (1.0-4.8); ABS Monocytes 1.1 10^3/uL (0.0-0.9); ABS Neutrophils 13.6 10^3/uL (1.5-7.6); Hematocrit 41.4 % (35-45); Hemoglobin 13.9 g/dL (11.5-14.3); Lymphocyte % 8.8 %; Mean Corpuscular Hemoglobin 28.8 pg (27-33); Mean Corpuscular Hgb Conc 33.6 g/dL (31-36); Mean Corpuscular Volume 85.7 fL (80-97); Mean Platelet Volume 8.3 fL (7.5-11.2); Platelet Count 291 10^3/uL (150-450); Red Blood Count 4.82 10^6/uL (3.63-4.92); Red Cell Distribution Width 14.1 % (12-17); White Blood Count 16.2 10^3/uL (3.8-11.8)
[2023-07-02] MEDS ORDERED: Enoxaparin 40 MG/0.4 ML SYR SUBCUT SCH (08:00)
[2023-07-02 08:06] LABS: Albumin 3.4 g/dL (3.2-5.2); Albumin/Globulin Ratio 1.7 (1-3); Calcium 8.6 mg/dL (8.6-10.3); Creatinine, Serum 0.61 mg/dL (0.51-0.95); Potassium 4.3 mmol/L (3.5-5.0); Total Bilirubin 0.4 mg/dL (0.2-1.0); Total Protein 5.4 g/dL (6.4-8.9); eGFR CKD-EPI 106.2 (>60)
[2023-07-02] MEDS: Mometasone/Formoter 200/5 MDI INH SCH (08:49)
[2023-07-02] MEDS ORDERED: Fluticasone NASAL SPRAY 50MCG 16 gm SPRAY BTL INTRANASAL SCH (09:00)
[2023-07-02 14:17] VITALS: BP 136/71
== END 2023-07-02 17:25 | disposition home or self-care (01) ==
LOC: ED 10:51 → OR 15:02 → SSU 15:03 → OR 15:03
PROVIDERS: ADMIT Registered Nurse Registered Nurse First Assistant; ATTEND Registered Nurse Registered Nurse First Assistant